=== PATIENT | female | born 1960 | race Caucasian/White ===

== ENCOUNTER 2016-09-16 14:39 | Emergency (ER) | payer MEDICAID ==
[2016-09-16 14:54] VITALS: BP 143/97
--- NOTE | 2016-09-16 15:34 | XRAY Preliminary Report ---
Exam: XR Knee 4 View RT IMPRESSION: Normal knee radiography. [facility] SITE ID: [id number]
--- NOTE | 2016-09-16 15:40 | XRAY Report ---
EXAM: RIGHT KNEE RADIOGRAPHY EXAM DATE: 09/16/2016 03:16 PM. CLINICAL HISTORY: Pain after twisting injury. COMPARISON: None. TECHNIQUE: 4 views. FINDINGS: Bones: Normal. No fractures or bone lesions. Joints: Normal. No effusion. No subluxations. Soft Tissues: Normal. No soft tissue swelling. IMPRESSION: Normal knee radiography. [facility] Referring Provider Line: [phone] SITE ID: [id number]
--- NOTE | 2016-09-16 17:33 | ED Physician Documentation ---
PD HPI LOWER EXT INJURY - Stated complaint Stated Complaint: R KNEE PX - Chief complaint Chief Complaint: Ext Problem - History obtained from History obtained from: Patient - History of Present Illness PD HPI LOW EXT INJURY LOCATION: Right, Knee Type of injury: Twist Where injury occurred: Home Timing - onset: How many weeks ago (1) Timing - details: Gradual onset Contributing factors: Other (Medial anterior knee pain with clicking behind the patella, remote history of arthroscopy there.) Review of Systems Constitutional: denies: Fever, Chills : reports: Reviewed and negative Skin: reports: Reviewed and negative Musculoskeletal: reports: Reviewed and negative PD PAST MEDICAL HISTORY - Past Medical History Cardiovascular: None Respiratory: COPD, Emphysema Neuro: Peripheral neuropathy Endocrine/Autoimmune: None Psych: None Musculoskeletal: Osteoarthritis - Past Surgical History General: Cholecystectomy, Appendectomy Ortho: Arthroscopic surgery /HEAD SAMPLER: Dilation and currettage, Hysterectomy HEENT: Tonsil/Adenoidectomy - Present Medications Home Medications: Ambulatory Orders Medication Instructions Recorded Confirmed Albuterol 1 neb NEB Q4HR PRN 08/02/15 09/16/16 Albuterol Sulfate [Ventolin Hfa] 2 puffs IH Q4HR 08/02/15 09/16/16 Amitriptyline [Elavil] 25 mg PO DAILY 08/02/15 09/16/16 Fluticasone Propionate [Flovent 1 puffs IH BID 08/02/15 09/16/16 Diskus] Loratadine 10 mg PO DAILY 08/02/15 09/16/16 Montelukast [Singulair] 10 mg PO DAILY 08/02/15 09/16/16 Naproxen [Naprosyn] 250 mg PO DAILY 08/02/15 09/16/16 Nitroglycerin [Nitrostat] 0.3 mg SL DAILY PRN 08/02/15 09/16/16 Salmeterol Xinafoate [Serevent 1 puffs IH BID 08/02/15 09/16/16 Diskus] Tiotropium [place] [Spiriva] 1 puffs IH DAILY 08/02/15 09/16/16 Cyclobenzaprine [Flexeril] 10 mg PO TID PRN #20 tablet 09/16/16 Ibuprofen [Motrin] 800 mg PO Q8H PRN #30 tablet 09/16/16 - Allergies Allergies/Adverse Reactions: Allergies Allergy/AdvReac Type Severity Reaction Status Date / Time morphine Allergy Nausea Verified 09/16/16 14:54 - Social History Does the pt smoke?: Yes Does the pt drink ETOH?: No Does the pt have substance abuse?: No - Immunizations Immunizations are current?: Yes PD ED PE NORMAL - Vitals Vital signs reviewed: Yes - General General: Alert and oriented X 3, No acute distress - Extremities Extremities: Other (Right knee is without effusion, no warmth. No bony tenderness but she has a lot of pain with flexion and grind testing, ligamentous testing is intact.) - Neuro Neuro: Alert and oriented X 3, Normal speech - Psych Psych: Normal mood, Normal affect Results - Vitals Vitals: Vital Signs - 24 hr 09/16/16 14:51 Temperature 36.6 C Heart Rate 94 Respiratory 15 Rate Blood Pressure 143/97 H O2 Saturation 96 Oxygen O2 Source Room air - Rads (name of study) R knee 4v Radiology: EMP read contemporaneously (normal) Departure - Departure Disposition: 01 Home, Self Care Clinical Impression: Knee pain, right Qualifiers: Chronicity: acute Qualified Code(s): M25.561 - Pain in right knee Condition: Good Record reviewed to determine appropriate education?: Yes Instructions: Knee Pain Prescriptions: Cyclobenzaprine [Flexeril] 10 mg PO TID PRN #20 tablet PRN Reason: Pain Ibuprofen [Motrin] 800 mg PO Q8H PRN #30 tablet PRN Reason: PAIN &/OR FEVER Comments: Follow-up with your primary care physician to discuss orthopedic referral. Return if worse. Your blood pressure was elevated today on check into the emergency department. This does not mean that you have hypertension, it is a common phenomenon to come to the emergency department and have elevated blood pressure. I recommend that she see her primary care physician within the week to have it rechecked when you are feeling better.
== END 2016-09-16 17:49 | disposition home or self-care (01) ==
LOC: ED 14:39
DX: M25.561 Pain in right knee (principal); G62.9 Polyneuropathy, unspecified; R03.0 Elevated blood-pressure reading, without diagnosis of hypertension
CPT/HCPCS: 99283

== ENCOUNTER 2017-02-18 15:08 | Outpatient (CLI) | payer MEDICAID ==
--- NOTE | 2017-02-20 11:43 | DEXA Report ---
DEXA SCAN: 02/18/2017 CLINICAL INDICATION: Osteoporosis. TECHNIQUE: Dual energy x-ray absorptiometry (DXA) was performed on a [employer] system. Regions measured are the AP spine, femoral neck, and, if needed, forearm. COMPARISON: None. In accordance with the International Society for Clinical Densitometry (ISCD) guidelines, data from previous exams may be reanalyzed using current recommendations and techniques. This is done to allow a more accurate basis for comparison with the current study. FINDINGS: The data for the lumbar spine is as follows: REGION BMD (g/cm/cm) T-SCORE Z-SCORE L1 0.903 -1.9 -1.3 L2 0.895 -2.5 -1.9 L3 0.912 -2.4 -1.8 L4 0.899 -2.5 -1.9 TOTAL 0.902 -2.3 -1.7 NOTE: All evaluable vertebrae are used for classification. The data for the hip is as follows: REGION BMD (g/cm/cm) T-SCORE Z-SCORE Neck 0.866 -1.2 -0.3 TOTAL 0.854 -1.2 -0.7 NOTE: The femoral neck or total proximal femur, whichever is lowest, is used for classification. IMPRESSION: THE WHO CLASSIFICATION BASED ON THE INTERNATIONAL REFERENCE STANDARD IS OSTEOPENIA. THE FRACTURE RISK IS INCREASED. RECOMMENDATION: Patients with diagnosis of osteoporosis or osteopenia should have regular bone mineral density assessment. For those eligible for Medicare, routine testing is allowed once every 2 years. Testing frequency can be increased for patients who have rapidly progressing disease or for those who are receiving medical therapy to restore bone mass. COMMENT: World Health Organization (WHO) definitions for osteoporosis and osteopenia: NORMAL BMD: T-score at 1.0 or higher, fracture risk is low. OSTEOPENIA BMD: T-score between 1.0 and -2.5, fracture risk is increased. OSTEOPOROSIS BMD: T-score at 2.5 or lower, fracture risk high. National Osteoporosis Foundation recommends: 1. Obtain adequate dietary calcium (at least 1200 mg per day) and vitamin D (400 -800 international units per day). 2. Participate, as appropriate, in regular weightbearing and muscle- strengthening exercise. 3. Avoid tobacco use and reduce alcohol and caffeine intake. 4. For more detailed information see the website at www.NOF.org. RA/ TD: 02/19/2017 10:36 MTDSada
== END 2017-02-18 15:09 | disposition home or self-care (01) ==
LOC: DI 15:08
PROVIDERS: ATTEND Family Medicine
DX: M81.0 Age-related osteoporosis without current pathological fracture (principal)
CPT/HCPCS: 77080

== ENCOUNTER 2017-02-18 15:10 | Outpatient (CLI) | payer MEDICAID ==
--- NOTE | 2017-02-19 14:17 | Mammography Report ---
REVISED: THIS REPORT WAS ORIGINALLY SIGNED ON 02/19/2017 @ 1525. THE EXAM DATE WAS CORRECTED ON 02/21/17. EXAM: DIGITAL SCREENING MAMMOGRAM: 02/18/2017 CLINICAL INDICATION: A 57-year-old with family history of breast cancer, for screening. COMPARISON: 07/2015, 03/2011, 08/2009. TECHNIQUE: Routine CC and MLO projections were obtained of the breasts. FINDINGS: The breasts demonstrate fatty replacement bilaterally. Intramammary lymph nodes are stable. No suspicious masses, clustered microcalcifications, or regions of architectural distortion are identified. IMPRESSION: BENIGN FINDINGS. RECOMMENDATIONS: Routine annual screening unless otherwise clinically indicated. BIRADS CATEGORY 2-BENIGN FINDINGS. STANDARD QUALIFYING STATEMENTS: 1. This examination was reviewed with the aid of Computer-Aided Detection (CAD). 2. A negative or benign imaging report should not delay biopsy if clinically suspicious findings are present. Consider surgical consultation if warranted. More than 5% of cancers are not identified by imaging. 3. Dense breasts may obscure an underlying neoplasm. MD MIKHAIL Alfonso/JARED TD: 02/19/2017 14:16 MTDD
== END 2017-02-18 15:11 | disposition home or self-care (01) ==
LOC: DI 15:10
PROVIDERS: ATTEND Family Medicine
DX: Z12.31 Encounter for screening mammogram for malignant neoplasm of breast (principal); Z80.3 Family history of malignant neoplasm of breast
CPT/HCPCS: 77067

== ENCOUNTER 2017-08-18 07:10 | Outpatient (CLI) | payer MEDICAID ==
--- NOTE | 2017-08-18 15:48 | CT Report ---
Procedure Date: 08/18/2017 Accession Number: [id number] / [id number] Procedure: CT - Chest W/O CPT Code: FULL RESULT: EXAM: CT CHEST EXAM DATE: 08/18/2017 07:30 AM. CLINICAL HISTORY: COPD, smoking, pulm nodule, shortness of breath. COMPARISONS: Chest CT 10/02/2013. TECHNIQUE: Routine helical CT imaging was performed through the chest. IV contrast: None. Reconstructions: Coronal and sagittal. In accordance with CT protocol optimization, one or more of the following dose reduction techniques were utilized for this exam: automated exposure control, adjustment of mA and/or KV based on patient size, or use of iterative reconstructive technique. FINDINGS: Lungs/Pleura: Stable triangular juxta-fissural right middle lobe nodule 4 x 6 mm (35/4). Focal subcentimeter juxta-fissural thickening right mid lung (30) also stable given technical differences. A stable 3 mm posterior right lower lobe nodule (28) and medial right lower lobe pleural-based thickening 5 x 8 mm (26). No new nodule or airspace opacity. Moderate centrilobular emphysema with upper lobe predominance. Mild right middle lobe and lingular scarring. No central endobronchial lesion. No pneumothorax or pleural effusion. Mediastinum: No mediastinal or hilar adenopathy by size criteria. Normal heart size. Normal caliber thoracic aorta. Bones: Mild dextroscoliosis. No fracture or aggressive bone destructive process. Visualized Abdomen: Unremarkable. IMPRESSION: 1. Stable small juxta-fissural and peripheral right lung nodules, benign given interval 3.5 + year stability. No new nodule or pathologic adenopathy. 2. Emphysema. [facility]
== END 2017-08-18 07:11 | disposition home or self-care (01) ==
LOC: DI 07:10
PROVIDERS: ATTEND Internal Medicine Critical Care Medicine
DX: R91.8 Other nonspecific abnormal finding of lung field (principal); J43.9 Emphysema, unspecified
CPT/HCPCS: 71250

== ENCOUNTER 2017-08-20 09:06 | Outpatient (CLI) | payer MEDICAID ==
[2017-08-20 09:44] LABS: ALBUMIN 3.8 g/dL (3.2-5.5); ALBUMIN/GLOBULIN RATIO 1.1 (1.0-2.2); ALKALINE PHOSPHATASE 116 IU/L (42-121); ALT ALANINE AMINOTRANSFERASE 21 IU/L (10-60); AST ASPARTATE AMINOTRANSFERASE 22 IU/L (10-42); BILIRUBIN,TOTAL 0.3 mg/dL (0.2-1.0); BUN - BLOOD UREA NITROGEN 8 mg/dL (6-20); CALCIUM 9.1 mg/dL (8.5-10.3); CARBON DIOXIDE - CO2 24 mmol/L (21-32); CHLORIDE 104 mmol/L (101-111); CHOL/HDL RATIO 5.7 (<4.4); CHOLESTEROL 218 mg/dL; CREATININE 0.8 mg/dL (0.4-1.0); GFR - MDRD 74 (>89); GLUCOSE 103 mg/dL (70-100); HDL CHOLESTEROL 38 mg/dL; LDL CHOLESTEROL,CALCULATED 136 mg/dL; LDL/HDL RATIO 3.6 (<4.4); SODIUM 138 mmol/L (135-145); TOTAL PROTEIN 7.4 g/dL (6.7-8.2); VLDL CHOLESTEROL 44 mg/dL
== END 2017-08-20 09:07 | disposition home or self-care (01) ==
LOC: LAB 09:06
PROVIDERS: ATTEND Family Medicine
DX: M81.0 Age-related osteoporosis without current pathological fracture (principal); E78.5 Hyperlipidemia, unspecified; F41.1 Generalized anxiety disorder
CPT/HCPCS: 80053; 80061; 82306; 83721; 84443

== ENCOUNTER 2017-09-02 10:48 | Outpatient (CLI) | payer MEDICAID | END 2017-09-02 10:49 | disposition home or self-care (01) | LOC: SC 10:48 | PROVIDERS: ATTEND Internal Medicine Pulmonary Disease | DX: G47.30 Sleep apnea, unspecified (principal); R09.02 Hypoxemia; R06.83 Snoring | CPT/HCPCS: 99203; 99212 ==

== ENCOUNTER 2017-09-23 20:12 | Outpatient (CLI) | payer MEDICAID | END 2017-09-23 20:13 | disposition home or self-care (01) | LOC: SC 20:12 | PROVIDERS: ATTEND Internal Medicine Pulmonary Disease | DX: G47.61 Periodic limb movement disorder (principal) | CPT/HCPCS: 95810 ==

== ENCOUNTER 2017-10-15 11:15 | Outpatient (CLI) | payer MEDICAID | END 2017-10-15 11:16 | disposition home or self-care (01) | LOC: SC 11:15 | PROVIDERS: ATTEND Nurse Practitioner Family | DX: R06.83 Snoring (principal); G47.61 Periodic limb movement disorder | CPT/HCPCS: 99212; 99213 ==

== ENCOUNTER 2017-10-16 14:59 | Outpatient (CLI) | payer MEDICAID | END 2017-10-16 15:00 | disposition home or self-care (01) | LOC: RT 14:59 | PROVIDERS: ATTEND Internal Medicine Cardiovascular Disease | DX: R07.9 Chest pain, unspecified (principal) | CPT/HCPCS: 93005 ==

== ENCOUNTER 2017-10-17 07:57 | Day surgery (SDC) | payer MEDICAID ==
--- NOTE | 2017-10-17 10:11 | XRAY Report ---
Procedure Date: 10/17/2017 Accession Number: [id number] / [id number] Procedure: XR - Chest for Line Placement CPT Code: FULL RESULT: EXAM: CHEST RADIOGRAPHY EXAM DATE: 10/17/2017 09:18 AM. CLINICAL HISTORY: PICC line placement per WATER/WASTEWATER PROJECT MANAGER. COMPARISON: None. TECHNIQUE: 1 view. FINDINGS: Lungs/Pleura: No focal opacities evident. No pleural effusion. No pneumothorax. Mediastinum: Within exam limitations, the cardiomediastinal contour is normal. Other: Right PICC terminating at the superior cavoatrial junction. IMPRESSION: Appropriately placed right PICC. [facility]
== END 2017-10-17 07:58 | disposition home or self-care (01) ==
LOC: SDS 07:57
PROVIDERS: ATTEND Nurse Anesthetist, Certified Registered
PROC: 02HV33Z Insertion of Infusion Device into Superior Vena Cava, Percutaneous Approach (ICD-10-PCS; principal; 2017-10-17 08:30)
DX: D75.1 Secondary polycythemia (principal)
CPT/HCPCS: 36569; C1751; 71045

== ENCOUNTER 2017-10-18 12:46 | Outpatient (CLI) | payer MEDICAID | END 2017-10-18 12:47 | disposition home or self-care (01) | LOC: DI 12:46 | PROVIDERS: ATTEND Internal Medicine Cardiovascular Disease | DX: R07.9 Chest pain, unspecified (principal); R06.02 Shortness of breath | CPT/HCPCS: 93306 ==

== ENCOUNTER 2017-10-31 18:21 | Emergency (ER) | payer MEDICAID ==
[2017-10-31 18:29] VITALS: BP 122/86
--- NOTE | 2017-10-31 18:49 | ED Physician Documentation ---
PD HPI SKIN - Stated complaint Stated Complaint: PICC LINE DRESSING COMING OFF - Chief complaint Chief Complaint: Ext Problem - History obtained from History obtained from: Patient - History of Present Illness Timing - onset: Today Timing - details: Gradual onset (her PICC line dressing was coming loose and she tried to get it to stay back on, but not successful. Here for dressing change. 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: Dilation and currettage, Hysterectomy HEENT: Tonsil/Adenoidectomy - Present Medications Home Medications: Ambulatory Orders Medication Instructions Recorded Confirmed Albuterol 1 neb NEB Q4HR PRN 08/02/15 10/01/17 Albuterol Sulfate [Ventolin Hfa] 2 puffs IH Q4HR 08/02/15 10/01/17 Amitriptyline [Elavil] 25 mg PO DAILY 08/02/15 10/01/17 Nitroglycerin [Nitrostat] 0.3 mg SL DAILY PRN 08/02/15 10/01/17 Ibuprofen [Motrin] 800 mg PO Q8H PRN #30 tablet 09/16/16 10/01/17 Fluticasone/Vilanterol [Breo 1 puffs INH DAILY 01/29/17 10/01/17 Ellipta 100-25 Mcg INH] - Allergies Allergies/Adverse Reactions: Allergies Allergy/AdvReac Type Severity Reaction Status Date / Time morphine Allergy Nausea Verified 09/16/16 14:54 sumatriptan [From Imitrex] AdvReac Nausea Verified 10/31/17 18:29 - Social History Does the pt smoke?: Yes Does the pt drink ETOH?: No Does the pt have substance abuse?: No - Immunizations Immunizations are current?: Yes PD ED PE NORMAL - Vitals Vital signs reviewed: Yes - General General: Alert and oriented X 3, No acute distress, Well developed/nourished - Derm Derm: Normal color, Warm and dry - Extremities Extremities: Other (right upper arm with PICC line. No signs of infection. The tegaderm covering is loose and not covering well. ) - Neuro Neuro: No motor deficit, No sensory deficit Results - Vitals Vitals: Oxygen O2 Source Room air PD MEDICAL DECISION MAKING - ED course Complexity details: considered differential (PICC line appears good without infection. Really here for dressing change. ), d/w patient - Sepsis Event Vital Signs: Oxygen O2 Source Room air Departure - Departure Disposition: Home, Self Care Clinical Impression: Status post PICC central line placement, Dressing change or removal, nonsurgical wound Condition: Stable Record reviewed to determine appropriate education?: Yes Comments: Continue usual care and treatments. Follow-up Friday as planned. Discharge Date/Time: 10/31/17 19:29
== END 2017-10-31 19:29 | disposition home or self-care (01) ==
LOC: ED 18:21
DX: Z48.00 Encounter for change or removal of nonsurgical wound dressing (principal); Z95.9 Presence of cardiac and vascular implant and graft, unspecified
CPT/HCPCS: 99281; 99283

== ENCOUNTER 2017-12-03 09:04 | Outpatient (CLI) | payer MEDICAID ==
--- NOTE | 2017-12-03 12:44 | CARDIAC PROCEDURE NOTE ---
DATE OF SERVICE: 12/03/2017 Physician: Awilda Price MD INDICATIONS 1. Chest tightness. 2. Shortness of breath. After signing informed consent, the patient underwent a treadmill stress test with Echo imaging at rest and with stress. Resting EKG: Normal sinus rhythm, right axis deviation, right bundle branch block with early R/S transition. Resting heart rate 93, peak heart rate 146 (90% predicted maximum heart rate for age). Resting blood pressure 128/64, peak blood pressure 180/60. The patient exercised for 7 minutes and 55 seconds on a modified Abdiel protocol. Patient achieved a peak heart rate of 146 (90% PMHR), and 4.6 METS. The patient had moderate to severe shortness of breath, no chest tightness. The patient brought her own inhaler and used this in recovery. Oxygen saturation at peak was 93% on room air. EKG at peak: No new ST or T-wave changes. IMPRESSION 1. Poor exercise tolerance. 2. No ischemic EKG changes at an adequate level of stress. 3. Nuclear images reported separately. cc: Katerina Das MD TD: 12/03/2017 12:16 MTDD
== END 2017-12-03 09:05 | disposition home or self-care (01) ==
LOC: DI 09:04
PROVIDERS: ATTEND Internal Medicine Cardiovascular Disease
DX: R07.89 Other chest pain (principal)
CPT/HCPCS: 93351

== ENCOUNTER 2017-12-31 14:42 | Day surgery (SDC) | payer MEDICAID ==
[2017-12-31 15:53] VITALS: BP 130/83
== END 2017-12-31 14:43 | disposition home or self-care (01) ==
LOC: SDS 14:42
PROVIDERS: ATTEND Nurse Anesthetist, Certified Registered
PROC: 02HV33Z Insertion of Infusion Device into Superior Vena Cava, Percutaneous Approach (ICD-10-PCS; principal; 2017-12-31 15:15)
DX: Z45.2 Encounter for adjustment and management of vascular access device (principal)
CPT/HCPCS: 36569; C1751

== ENCOUNTER 2018-01-12 08:22 | Inpatient (IN) | payer MEDICAID ==
[2018-01-12] MEDS ORDERED: IPRATROPIUM/ALBUTEROL 3 ML NEB INH STA (08:35)
[2018-01-12] MEDS ORDERED: DEXAMETHASONE 10 MG/ML VIAL PO STA (08:35)
--- NOTE | 2018-01-12 08:35 | ED Physician Documentation ---
History of Present Illness - Stated complaint Stated Complaint: DIFF BREATHING - Additonal information Additional information: hx from pt 3 days of fever cough soa wheeze mylagia too no travel daughter sick she has COPD been using her nebs q3 has home O2 usualy just at night - now all the time no steroids no leg swelling being worked up for suspected cancer Review of Systems Constitutional: reports: Fever, Myalgias Respiratory: reports: Dyspnea, Cough, Wheezing GI: denies: Vomiting, Diarrhea Neurologic: reports: Generalized weakness Endocrine: denies: Easy bruising / bleeding Immunocompromised: denies: Immunocompromised PD PAST MEDICAL HISTORY - Past Medical History Cardiovascular: None Respiratory: COPD, Emphysema Endocrine/Autoimmune: None Psych: None Musculoskeletal: Osteoarthritis - Past Surgical History General: Cholecystectomy, Appendectomy Ortho: Arthroscopic surgery /DIETITIAN THERAPEUTIC: Dilation and currettage, Hysterectomy HEENT: Tonsil/Adenoidectomy - Present Medications Home Medications: Ambulatory Orders Medication Instructions Recorded Confirmed Albuterol 1 neb NEB Q4HR PRN 08/02/15 11/26/17 Albuterol Sulfate [Ventolin Hfa] 2 puffs IH Q4HR 08/02/15 11/26/17 Amitriptyline [Elavil] 25 mg PO DAILY 08/02/15 11/26/17 Nitroglycerin [Nitrostat] 0.3 mg SL DAILY PRN 08/02/15 11/26/17 Ibuprofen [Motrin] 800 mg PO Q8H PRN #30 tablet 09/16/16 11/26/17 Fluticasone/Vilanterol [Breo 1 puffs INH DAILY 01/29/17 11/26/17 Ellipta 100-25 Mcg INH] - Allergies Allergies/Adverse Reactions: Allergies Allergy/AdvReac Type Severity Reaction Status Date / Time morphine Allergy Nausea Verified 09/16/16 14:54 sumatriptan [From Imitrex] AdvReac Nausea Verified 10/31/17 18:29 - Social History Does the pt smoke?: Yes Smoking Status: Current every day smoker Does the pt drink ETOH?: No Does the pt have substance abuse?: No - Immunizations Immunizations are current?: Yes PD ED PE NORMAL - Vitals Vital signs reviewed: Yes (hypoxic low 90s) - Neck Neck: Supple, no meningeal sign - Cardiac Cardiac: RRR - Respiratory Respiratory: Other (tight dec some wheezing ronchi yash labored incessant cough) - Abdomen Abdomen: Soft, Non tender - Derm Derm: Normal color - Extremities Extremities: No edema, No calf tenderness / cord - Psych Psych: Normal mood Results - Vitals Vitals: Vital Signs - 24 hr 01/12/18 01/12/18 01/12/18 08:30 08:55 11:03 Temperature 36.2 C L Heart Rate 119 H 99 100 Respiratory 12 18 18 Rate Blood Pressure 153/112 H O2 Saturation 93 01/12/18 12:13 Temperature 37.0 C Heart Rate 100 Respiratory 24 Rate Blood Pressure 106/62 O2 Saturation 99 Oxygen O2 Source Nasal cannula Oxygen Flow Rate 3 - Labs Labs: Laboratory Tests 01/12/18 01/12/18 01/12/18 08:35 13:30 13:30 WBC 9.1 RBC 4.13 L Hgb 12.8 Hct 37.8 MCV 91.6 MCH 31.0 MCHC 33.8 RDW 13.6 Plt Count 225 MPV 8.8 Neut # (Auto) 8.3 H Lymph # (Auto) 0.6 L Grimes # (Auto) 0.2 Eos # (Auto) 0.0 Baso # (Auto) 0.0 Absolute Nucleated RBC 0.00 Nucleated RBC % 0.0 Sodium 137 Potassium 3.7 Chloride 103 Carbon Dioxide 24 Anion Gap 10.0 BUN 8 Creatinine 0.8 Estimated GFR (MDRD) 74 L Glucose 146 H Calcium 8.9 Troponin I Influenza A (Rapid) Negative Influenza B (Rapid) Negative 01/12/18 13:30 WBC RBC Hgb Hct MCV MCH MCHC RDW Plt Count MPV Neut # (Auto) Lymph # (Auto) Grimes # (Auto) Eos # (Auto) Baso # (Auto) Absolute Nucleated RBC Nucleated RBC % Sodium Potassium Chloride Carbon Dioxide Anion Gap BUN Creatinine Estimated GFR (MDRD) Glucose Calcium Troponin I < 0.04 Influenza A (Rapid) Influenza B (Rapid) - Rads (name of study) CXR Radiology: See rad report (no acute) CTPA Radiology: See rad report (no PE, emphysema, no opacities, unchanged nodules and modes) PD MEDICAL DECISION MAKING - ED course ED course: neg flu no pna txed with steroids and nebs after decadron tessalon fabiana DM and duoneb pt still labored tight and wheezy also R side pain with cough lido patch relieved pain improved air movement with more nebs but desat to 80 with minimal exertion will needed admit will add CTPA given tachy profound hypoxia possible CA and smoker added on labs too for admit paged hospitalist at 1250 spoke to hospitalist at 1320 Departure - Departure Disposition: 66 [facility] DC/Xfer Clinical Impression: Hypoxia Condition: Good
[2018-01-12] MEDS ORDERED: BENZONATATE 100 MG CAPSULE PO STA (08:54)
[2018-01-12] MEDS ORDERED: guaiFENesin/DEXTROMETHORPHAN 10 ML UDC PO STA (08:54)
--- NOTE | 2018-01-12 09:12 | XRAY Report ---
Reason: soa Procedure Date: 01/12/2018 Accession Number: [id number] / [id number] Procedure: XR - Chest 2 View X-Ray CPT Code: 60410 FULL RESULT: EXAM: CHEST RADIOGRAPHY EXAM DATE: 01/12/2018 08:52 AM. CLINICAL HISTORY: Short of breath, intermittent fever COMPARISON: 12/29/2017 TECHNIQUE: 2 views. FINDINGS: Lungs/Pleura: No focal opacities evident. No pleural effusion. No pneumothorax. Normal volumes. Mediastinum: Heart and mediastinal contours are unremarkable. Other: No acute findings compared with prior. IMPRESSION: Clear lungs. No acute findings.. [facility]
[2018-01-12] MEDS ORDERED: LIDOCAINE PATCH 5% TOP STA (10:17)
[2018-01-12] MEDS ORDERED: ALBUTEROL NEB 2.5 MG/3 ML INH STA (10:17)
[2018-01-12] MEDS ORDERED: SODIUM CHLORIDE 0.9% 1,000 ML IV ONE (12:54)
[2018-01-12] MEDS ORDERED: IOPAMIDOL-300 100 ML VIAL ONE (13:03)
[2018-01-12 13:39] LABS: BASOPHILS % (AUTO) 0.3 %; HGB - HEMOGLOBIN 12.8 g/dL (12.0-16.0); LYMPHOCYTES # (AUTO) 0.6 10^3/uL (1.5-3.5); LYMPHOCYTES % (AUTO) 6.2 %; MEAN CORPUSCULAR HGB CONC 33.8 g/dL (32.0-36.0); MEAN CORPUSCULAR VOLUME 91.6 fL (81.0-99.0); MEAN PLATELET VOLUME 8.8 fL (7.9-10.8); MONOCYTES # (AUTO) 0.2 10^3/uL (0.0-1.0); MONOCYTES % (AUTO) 1.8 %; NEUTROPHILS # (AUTO) 8.3 10^3/uL (1.5-6.6); NEUTROPHILS % (AUTO) 91.7 %; PLT - PLATELET COUNT 225 10^3/uL (130-450); RED BLOOD COUNT 4.13 10^6/uL (4.20-5.40); RED CELL DISTRIBUTION WIDTH 13.6 % (12.0-15.0); WHITE BLOOD COUNT 9.1 x10^3/uL (4.8-10.8)
[2018-01-12 13:49] LABS: CALCIUM 8.9 mg/dL (8.5-10.3); CREATININE 0.8 mg/dL (0.4-1.0)
[2018-01-12] MEDS ORDERED: SODIUM CHLORIDE FLUSH 0.9% 10 ML SYRINGE IVP PRN (14:39)
--- NOTE | 2018-01-12 14:40 | HISTORY & PHYSICAL EXAMINATION ---
Chief Complaint - Chief Complaint Chief Complaint: profound SOB, inability to ambulate History of Present Illness - Admitted From Admitted From:: ED - History Obtained From Records Reviewed: yes History obtained from: chart review, patient Exam Limitations: none, anxiety - History of Present Illness HPI Comment/Other: Pat Yuen is an old appearing 57-year old female with a past medical history of polycythemia, tobacco dependence, oxygen dependence, osteoarthritis, angina, hypertension, hyperlipidemia, CAD, pulmonary nodules, recent weight loss, and vitamin D deficiency. She came to the ED today after a 3 day history of headache, fever, chills, productive cough, profound weakness, inability to ambulate, increased home oxygen needs, and ongoing shortness of breath. She states that her daughter, Ya was ill, and believes she had the flu. She states that she started to become ill on Friday (3 days ago) with sneezing, runny nose and general fatigue, and on Friday (2 days ago) she became much worse with similar symptoms, except now had coughing that was productive with white/yellow sputum. She states that she coughed so hard that she would wet her pants and/or vomit from gagging. She is dependent on oxygen that she normally wears at night, but she was wearing it continuously and turned it from her usual 2L up to 3L per nasal cannula. She also admits to round the clock albuterol use via nebulizer and "puffer". She states that the reason she came in today was her inability to ambulate more than a few steps. Once in the ED labs were unremarkable and her chest x-ray was clear. She complained of right chest burning pain with inspiration and was tacycardic, so a chest CT was done which showed stable unchanged pulmonary nodules and negative for a PE. On exam, she denied mid-sternal chest pain, radiating pain, dizziness, diaphoresis, rashes, or hemoptysis. She will be admitted to inpatient for treatment of her COPD with IV steroids, IV antibiotics, and respiratory care. History - Past Medical History Cardiovascular: reports: Hypertension, High cholesterol, Coronary artery disease, Angina, Murmur Respiratory: reports: COPD, Emphysema, Pneumonia, Shortness of breath Neuro: reports: Headaches Endocrine/Autoimmune: reports: None GI: reports: GERD, Colon polyps DIGITAL PHOTOGRAPHIC PRINTER: reports: None : reports: Incontinence, Nocturia, Frequency HEENT: reports: Chronic sinusitis Psych: reports: Depression, Anxiety Musculoskeletal: reports: Osteoarthritis, Osteopenia Derm: reports: None MRSA Hx?: No - Past Surgical History General: reports: Cholecystectomy, Appendectomy Ortho: reports: Arthroscopic surgery /DIGITAL PHOTOGRAPHIC PRINTER: reports: Dilation and currettage, Hysterectomy (cervix removal) Cardiovascular: reports: Cardiac catheterization HEENT: reports: Tonsil/Adenoidectomy - Family & Social History Family History: Mother: , Father: , CAD, Diabetes, Type 2, Brother: Family History Comment/Other: Father-heart disease, DM. Mother-thyroid disease, pulmonary fibrosis. Brother- in a car accident Living arrangement: At home Living Situation: With family Social History Notes: The patient has 8 children, and her youngest, Marisela lives with her and her 8 birds and 2 dogs. The patient is independent and can complete all of her ADLs, and wears oxygen at night. She states that she still drives. 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 She denies alcoholism or illicit drug use. She admits to current tobacco dependence of which she continues to smoke up to 1 PPD since age 17 years. She wishes to be a FULL code. - Substance History Use: Uses substance without health or social issues: Tobacco Use Issues: Anxiety Disorder Abuse: Recurrent use of substance despite neg consequences: NONE Dependence: Experiences withdrawal or developed tolerances: Tobacco Dependence Issues: Anxiety Disorder Tobacco Details: Cigarettes - POLST Patient has POLST: No POLST Status: Full Code Meds/Allgy - Home Medications Home Medications: Ambulatory Orders Medication Instructions Recorded Confirmed Albuterol 1 neb NEB Q4HR PRN 08/02/15 11/26/17 Albuterol Sulfate [Ventolin Hfa] 2 puffs IH Q4HR 08/02/15 11/26/17 Amitriptyline [Elavil] 25 mg PO DAILY 08/02/15 11/26/17 Nitroglycerin [Nitrostat] 0.3 mg SL DAILY PRN 08/02/15 11/26/17 Ibuprofen [Motrin] 800 mg PO Q8H PRN #30 tablet 09/16/16 11/26/17 Fluticasone/Vilanterol [Breo 1 puffs INH DAILY 01/29/17 11/26/17 Ellipta 100-25 Mcg INH] - Allergies Allergies/Adverse Reactions: Allergies Allergy/AdvReac Type Severity Reaction Status Date / Time morphine Allergy Nausea Verified 09/16/16 14:54 sumatriptan [From Imitrex] AdvReac Nausea Verified 10/31/17 18:29 Exam - Vital Signs Reviewed Vital Signs: Yes Vital Signs: Vital Signs x48h Temp Pulse Resp BP Pulse Ox 01/12/18 12:13 37.0 C 100 24 106/62 99 01/12/18 11:03 100 18 01/12/18 08:55 99 18 01/12/18 08:30 36.2 C L 119 H 12 153/112 H 93 - Physical Exam General Appearance: positive: Alert, Moderate distress, Anxious Eyes Bilateral: positive: PERRL, No lid inflammation ENT: positive: Pharyngeal erythema, Dry mucous membranes Neck: positive: No JVD, Lymphadenopathy (R), Lymphadenopathy (L) Respiratory: positive: Chest non-tender, Wheezes, Rhonchi Cardiovascular: positive: Regular rate & rhythm, No gallop, Tachycardia, Systolic murmur Peripheral Pulses: positive: 1+ Abdomen: positive: Non-tender, Nml bowel sounds Back: positive: Nml inspection Skin: positive: No rash, Warm, Dry, Cyanosis, Pallor Extremities: positive: Non-tender, Full ROM, Nml appearance, No pedal edema Neurologic/Psychiatric: positive: Oriented x3, CN's nml (2-12), Motor nml, Sensation nml, Weakness, Depressed mood/affect Reflexes: Bicep (R): 3+, Bicep (L): 3+ Sepsis Event Note (H) - Evaluation Current Stage of Sepsis: Ruled out Conclusion/Plan - Problem List (1) COPD exacerbation Conclusion/Plan: The patient states that she does not usual get admitted to the hospital, but has several ED visits for her COPD. She started to become ill on Friday (3 days ago) with sneezing, runny nose and general fatigue, and on Friday (2 days ago) she became much worse with similar symptoms, except now had coughing that was productive with white/yellow sputum. She states that she coughed so hard that she would wet her pants and/or vomit from gagging. She is dependent on oxygen that she normally wears at night, but she was wearing it continuously and turned it from her usual 2L up to 3L per nasal cannula. She also admits to round the clock albuterol use via nebulizer and "puffer". She states that the reason she came in today was her inability to ambulate more than a few steps. The patient is talkative, has a dramatic social life and has risk for polluting organisms in her home because she has at least 8 BIRDs and 2 dogs that live in the house. Plan: Continue to treat acute exacerbation using moderate dose IV steroids, nebs, IV zosyn, cough suppressants, and attempt to obtain a sputum sample. (2) Hypoxia Conclusion/Plan: The patient states that she did not check her oxygen at home, but had turned her oxygen up from her usual dose of 2L to 3L since Friday. Plan: Continue oxygen, respiratory care. Per chart review, she was 93% on room air. (3) Oxygen dependent Conclusion/Plan: The patient states that she has required oxygen for sleeping for several years, but has progressively used it more during the day. Plan: Continue to treat COPD exac. (4) Tobacco dependence Conclusion/Plan: The patient admits to life long tobacco dependence and states that she was able to quit for 7 years, but went back to it. She states that she smokes nearly 1 PPD, but usually would smoke 2-3 PPD. She is dependent on oxygen and has signs of tobacco abuse. She states she is not ready to quit. She was counseled about the #1 recommendation is to stop smoking. She refused a nicotine patch. Plan: Offer patch if needed. (5) Pulmonary nodule Conclusion/Plan: The patient had a chest CT in August that showed several pulmonary nodules and today on a chest CT that was obtained to rule out PE, these nodules are stable and unchanged. She denies hemopysis on exam. She states that she has not established an oncologist and is about to have a colonoscopy for her recent weight loss. Plan: Continue to treat COPD. - Lab Results Lab results reviewed: Yes Lius Bones: 01/12/18 13:30 01/12/18 13:30 - Diagnostic Imaging Results Diagnostic Imaging Results: positive: Prelim report reviewed Diagnostic Imaging Results Comments: Chest x-ray shows no infiltrates. Chest CT, pulmonary nodules that are unchanged, and negative for PE. Core Measures - Anticipated LOS I expect patient to be DC'd or transferred within 96 hours.: Yes - DVT/VTE - Prophylaxis VTE/DVT Device ordered at admit?: Yes VTE/DVT Prophylaxis med ordered at admit?: Yes - Stroke - Rehab Assessment Rehab services assessment to be ordered?: No Not Ordered - Medical Reason: Contraindicated - AMI - Statin at Admit Aspirin Prescribed on Admit: Yes
[2018-01-12] MEDS: IOPAMIDOL-300 100 ML VIAL IVP ONE (14:42)
--- NOTE | 2018-01-12 15:06 | CT Report ---
Reason: soa tachy hypoxic smoker possible cancer Procedure Date: 01/12/2018 Accession Number: [id number] / [id number] Procedure: CT - Chest Angio (PE) CPT Code: FULL RESULT: EXAM: CT ANGIOGRAM CHEST EXAM DATE: 01/12/2018 02:00 PM. CLINICAL HISTORY: Shortness of breath, tachycardia, hypoxic, smoker, possible cancer. COMPARISON: CHEST W/O 08/18/2017 7:26 AM CHEST 2 VIEW 01/12/2018 8:40 AM CHEST W/O 10/02/2013 9:40 AM. TECHNIQUE: Routine helical imaging was performed through the chest in the pulmonary arterial phase. IV Contrast: 50 cc Isovue-300. Reconstructions: Coronal 3-D MIP reconstructions.Sagittal and coronal. In accordance with CT protocol optimization, one or more of the following dose reduction techniques were utilized for this exam: automated exposure control, adjustment of mA and/or KV based on patient size, or use of iterative reconstructive technique. FINDINGS: Pulmonary Arteries: Diagnostic quality: Adequate through the segmental arteries. No evidence for acute or chronic pulmonary emboli. Heart: Normal size. RV/LV is within normal limits. There is no interventricular septal bowing. There is no reflux of contrast material in the IVC. Lungs/Pleura: Moderate centrilobular emphysema, as before. There are unchanged nodules: 9 x 4 mm subpleural nodule/lymph node medially in the superior segment right lower lobe (5/61). 3 mm peripheral nodule posteromedially in the superior segment right lower lobe present 5/67). 6 mm nodule/lymph node along the minor fissure (5/72). 7 x 4 mm peripheral anterior aspect of the right middle lobe (5/88). No new nodules. No confluent airspace consolidation. No generalized interstitial abnormality. Central airways normal. No pleural fluid or pneumothorax. Mediastinum: Mildly enlarged 12 mm short axis diameter aorticopulmonary window lymph node, unchanged. Upper normal sized 10 mm precarinal lymph node, unchanged. There are small bilateral hilar lymph nodes, unchanged. Thyroid gland and esophagus are unremarkable. Thoracic Aorta: Minimal scattered descending thoracic aortic calcification. No aneurysm or dissection. Upper Abdomen: Gallbladder surgically absent. Otherwise unremarkable. Other: Chest wall unremarkable. Bones unremarkable. IMPRESSION: 1. No pulmonary embolism. 2. Moderate centrilobular emphysema, as before. 3. No new airspace opacities. Scattered small right-sided peripheral nodules and subpleural lymph nodes, unchanged since 2014. 4. Mildly enlarged aorticopulmonary window and upper normal sized pre-carinal lymph nodes, unchanged. RADIA
[2018-01-12] MEDS ORDERED: IPRATROPIUM/ALBUTEROL 3 ML NEB INH SCH (16:41)
[2018-01-12] MEDS ORDERED: ACETAMINOPHEN 325 MG TABLET PO PRN (16:45)
[2018-01-12] MEDS: methylPREDNISolone SUCCINATE 40 MG/ML VIAL IVP SCH ×2 (18:22→21:56)
[2018-01-12] MEDS: SODIUM CHLORIDE FLUSH 0.9% 10 ML SYRINGE IVP SCH ×2 (18:22→23:57)
[2018-01-12] MEDS: D5.45NS W/20 MEQ KCL 1,000 ML IV SCH (18:22)
[2018-01-12] MEDS: PIPERACILLIN/TAZOBACTAM 4.5 GM in SODIUM CHLORIDE 0.9% MINIBAG 100 ML IV SCH (18:32)
[2018-01-12] MEDS: IPRATROPIUM/ALBUTEROL 3 ML NEB INH SCH (19:09)
[2018-01-12] MEDS: guaiFENesin/DEXTROMETHORPHAN 10 ML UDC PO PRN (20:14)
[2018-01-12] MEDS: BENZONATATE 100 MG CAPSULE PO PRN (20:14)
[2018-01-12] MEDS ORDERED: SODIUM CHLORIDE 0.65% NASAL SPRAY NAS PRN (23:41)
[2018-01-13] MEDS: ALBUTEROL NEB 2.5 MG/3 ML INH PRN (00:09)
[2018-01-13] MEDS: guaiFENesin/DEXTROMETHORPHAN 10 ML UDC PO PRN ×3 (02:02→16:59)
[2018-01-13] MEDS: PIPERACILLIN/TAZOBACTAM 4.5 GM in SODIUM CHLORIDE 0.9% MINIBAG 100 ML IV SCH ×3 (02:02→18:27)
[2018-01-13] MEDS: methylPREDNISolone SUCCINATE 40 MG/ML VIAL IVP SCH (05:21)
[2018-01-13] MEDS: SODIUM CHLORIDE FLUSH 0.9% 10 ML SYRINGE IVP PRN ×2 (05:21→05:22)
[2018-01-13] MEDS: BENZONATATE 100 MG CAPSULE PO PRN ×2 (05:21→14:17)
[2018-01-13 05:47] LABS: BASOPHILS % (AUTO) 0.1 %; LYMPHOCYTES # (AUTO) 1.2 10^3/uL (1.5-3.5); LYMPHOCYTES % (AUTO) 6.6 %; MEAN CORPUSCULAR HEMOGLOBIN 30.8 pg (27.0-31.0); MEAN CORPUSCULAR VOLUME 93.2 fL (81.0-99.0); MEAN PLATELET VOLUME 8.8 fL (7.9-10.8); MONOCYTES # (AUTO) 0.8 10^3/uL (0.0-1.0); MONOCYTES % (AUTO) 4.7 %; NEUTROPHILS # (AUTO) 15.5 10^3/uL (1.5-6.6); NEUTROPHILS % (AUTO) 88.6 %; PLT - PLATELET COUNT 235 10^3/uL (130-450); RED CELL DISTRIBUTION WIDTH 14.3 % (12.0-15.0); WHITE BLOOD COUNT 17.5 x10^3/uL (4.8-10.8)
[2018-01-13 05:56] LABS: ALBUMIN 3.1 g/dL (3.2-5.5); ALBUMIN/GLOBULIN RATIO 0.9 (1.0-2.2); BILIRUBIN,TOTAL 0.3 mg/dL (0.2-1.0); CALCIUM 8.6 mg/dL (8.5-10.3); CREATININE 0.8 mg/dL (0.4-1.0); MAGNESIUM 2.2 mg/dL (1.7-2.8); PHOSPHORUS 2.3 mg/dL (2.5-4.6); TOTAL PROTEIN 6.5 g/dL (6.7-8.2)
[2018-01-13] MEDS: IPRATROPIUM/ALBUTEROL 3 ML NEB INH SCH ×4 (07:20→19:00)
[2018-01-13] MEDS: D5.45NS W/20 MEQ KCL 1,000 ML IV SCH (09:44)
[2018-01-13] MEDS: FLUCONAZOLE 200 MG/100 ML 50 ML IV SCH (09:46)
[2018-01-13] MEDS: SACCHAROMYCES BOULARDII 250 MG CAPSULE PO SCH ×2 (09:49→18:26)
[2018-01-13] MEDS: ENOXAPARIN 40 MG/0.4 ML SYRINGE SUBQ SCH ×2 (09:49→09:52)
[2018-01-13] MEDS: guaiFENesin 600 MG TABLET PO SCH (09:50)
[2018-01-13] MEDS: POLYETHYLENE GLYCOL 3350 17 GM PACKET PO SCH (09:51)
[2018-01-13] MEDS: SODIUM CHLORIDE FLUSH 0.9% 10 ML SYRINGE IVP SCH ×2 (09:53→17:00)
[2018-01-13] MEDS ORDERED: IOPAMIDOL-300 100 ML VIAL ONE (10:43)
[2018-01-13] MEDS ORDERED: IOVERSOL 320 50 ML VIAL ONE (10:43)
[2018-01-13] MEDS: SODIUM CHLORIDE 0.9% 1,000 ML IV SCH (11:44)
[2018-01-13] MEDS ORDERED: methylPREDNISolone SUCCINATE 40 MG/ML VIAL IVP SCH (14:00)
[2018-01-13] MEDS ORDERED: IOVERSOL 320 50 ML VIAL PO ONE (14:29)
[2018-01-13] MEDS: IOPAMIDOL-300 100 ML VIAL IVP ONE (14:30)
--- NOTE | 2018-01-13 15:18 | PROVIDER PROGRESS NOTE ---
Subjective - Prog Note Date Prog Note Date: 01/13/18 - Subjective Pt reports feeling: Improved Subjective: pt report she had a out-pt schedule for CT of abdomen and pelvis on tomorrow for concern of her possible malignancy. Pt state since she is already inpt, request to have CT. She state she continue to use Cigarette but is willing to quit. She report she has some cough but better than yesterday, denies fever, chill, chest pain. Current Medications - Current Medications Current Medications: Active Medications Acetaminophen (Tylenol) 650 mg PO Q4HR PRN PRN Reason: Pain or Fever > 38C (100.4F) Albuterol () 2.5 mg INH RTQ4H PRN PRN Reason: Wheezing Last Admin: 01/13/18 00:09 Dose: 2.5 mg Albuterol/Ipratropium (Duoneb) 3 ml INH RTQID [facility] Last Admin: 01/13/18 14:00 Dose: 3 ml Benzonatate (Tessalon) 100 mg PO TID PRN PRN Reason: Cough Last Admin: 01/13/18 14:17 Dose: 100 mg Enoxaparin Sodium (Lovenox) 40 mg SUBQ DAILY [facility] Last Admin: 01/13/18 09:52 Dose: Not Given Guaifenesin (Mucinex) 600 mg PO DAILY [facility] Last Admin: 01/13/18 09:50 Dose: 600 mg Guaifenesin (Robitussin Dm) 10 ml PO Q6HR PRN PRN Reason: Cough Last Admin: 01/13/18 10:35 Dose: 10 ml Piperacillin Sod/Tazobactam (Sod 4.5 gm/ Sodium Chloride) 100 mls @ 25 mls/hr IV Q8H [facility] Last Infusion: 01/13/18 14:58 Dose: Infused Fluconazole (Diflucan 200 Mg/100 Ml) 50 mls @ 0 mls/hr IV DAILY [facility] Last Infusion: 01/13/18 10:30 Dose: Infused Sodium Chloride (Normal Saline 0.9%) 1,000 mls @ 100 mls/hr IV .Q10H [facility] Stop: 01/14/18 06:59 Last Admin: 01/13/18 11:44 Dose: 100 mls/hr Methylprednisolone (Solu-Medrol (40mg Vial)) 30 mg IVP TID [facility] Last Admin: 01/13/18 14:12 Dose: 30 mg Polyethylene Glycol (Miralax) 17 gm PO DAILY [facility] Last Admin: 01/13/18 09:51 Dose: Not Given Saccharomyces Boulardii (Florastor) 500 mg PO BIDWM [facility] Last Admin: 01/13/18 09:49 Dose: 500 mg Sodium Chloride (Normal Saline Flush 0.9%) 10 ml IVP PRN PRN PRN Reason: NEEDED PER PROVIDER ORDERS Last Admin: 01/13/18 05:21 Dose: 10 ml Sodium Chloride (Normal Saline Flush 0.9%) 10 ml IVP 0100,0900,1700 [facility] Last Admin: 01/13/18 09:53 Dose: Not Given Sodium Chloride (Normal Saline Flush 0.9%) 10 ml IVP PRN PRN PRN Reason: NEEDED PER PROVIDER ORDERS Sodium Chloride (Normal Saline Flush 0.9%) 20 ml IVP PRN PRN PRN Reason: After TPN or Blood Draw Last Admin: 01/13/18 05:22 Dose: 20 ml Sodium Chloride ([place]) 2 sprays LICHA Q4HR PRN PRN Reason: Nasal Congestion Albuterol 1 neb NEB Q4HR PRN 08/02/15 Albuterol Sulfate [Ventolin Hfa] 2 puffs IH Q4HR PRN 08/02/15 Amitriptyline [Elavil] 50 mg PO DAILY 08/02/15 Ascorbic Acid [Vitamin C] 500 mg PO DAILY 01/13/18 Cholecalciferol [Vitamin D3] 5,000 unit PO DAILY 01/13/18 Nitroglycerin 0.4 mg SL DAILY PRN 01/13/18 Tiotropium [place] [Spiriva] 2 inh INH DAILY 01/13/18 Objective - Vital Signs/Intake & Output Vital Signs: Vital Signs x48h Temp Pulse Pulse Resp BP Pulse Ox 01/13/18 14:00 86 20 01/13/18 12:05 36.7 C 80 22 104/69 97 01/13/18 11:40 36.6 C 75 16 95/65 97 01/13/18 07:57 36.4 C L 85 18 92/61 95 01/13/18 07:20 89 20 Intake & Output: Intake & Output 01/10/18 01/11/18 01/12/18 01/13/18 23:59 23:59 23:59 23:59 Intake Total 871.770 0695.283 Balance 624.109 4575.302 - Lab Results Fish Bones: 01/13/18 05:33 01/13/18 05:33 Other Labs: Lab Results x24hrs 01/13/18 01/13/18 01/13/18 Range/Units 05:33 05:33 05:33 WBC 17.5 H (4.8-10.8) x10^3/uL RBC 3.90 L (4.20-5.40) 10^6/uL Hgb 12.0 (12.0-16.0) g/dL Hct 36.3 L (37.0-47.0) % MCV 93.2 (81.0-99.0) fL MCH 30.8 (27.0-31.0) pg MCHC 33.0 (32.0-36.0) g/dL RDW 14.3 (12.0-15.0) % Plt Count 235 (130-450) 10^3/uL MPV 8.8 (7.9-10.8) fL Neut # (Auto) 15.5 H (1.5-6.6) 10^3/uL Lymph # (Auto) 1.2 L (1.5-3.5) 10^3/uL [place] # (Auto) 0.8 (0.0-1.0) 10^3/uL Eos # (Auto) 0.0 (0.0-0.7) 10^3/uL Baso # (Auto) 0.0 (0.0-0.1) 10^3/uL Absolute Nucleated RBC 0.00 x10^3/uL Nucleated RBC % 0.0 /100WBC Sodium 136 (135-145) mmol/L Potassium 4.0 (3.5-5.0) mmol/L Chloride 107 (101-111) mmol/L Carbon Dioxide 25 (21-32) mmol/L Anion Gap 4.0 L (6-13) BUN 9 (6-20) mg/dL Creatinine 0.8 (0.4-1.0) mg/dL Estimated GFR (MDRD) 74 L (>89) Glucose 148 H (70-100) mg/dL Lactic Acid 1.8 (0.5-2.2) mmol/L Calcium 8.6 (8.5-10.3) mg/dL Phosphorus 2.3 L (2.5-4.6) mg/dL Magnesium 2.2 (1.7-2.8) mg/dL Total Bilirubin 0.3 (0.2-1.0) mg/dL AST 22 (10-42) IU/L ALT 13 (10-60) IU/L Alkaline Phosphatase 101 (42-121) IU/L Total Protein 6.5 L (6.7-8.2) g/dL Albumin 3.1 L (3.2-5.5) g/dL Globulin 3.4 (2.1-4.2) g/dL Albumin/Globulin Ratio 0.9 L (1.0-2.2) Sepsis Event Note (H) - Evaluation Current Stage of Sepsis: Ruled out Assessment/Plan - Problem List (1) COPD exacerbation Impression: pt report she took 2 liter of O2 at night. pt feel breathing is better today. continue Duonet, solu-metrol, O2 supplement as needed (2) Hypoxia Conclusion/Plan: improved, pt state she feel her breath is better, 97% sats on 4 liter of O2 continue to treat COPD exacerbation, continue treat with antibiotics (3) Oxygen dependent Conclusion/Plan: pt is home O2 dependent special at night continue O2 supplement as needed (4) Tobacco dependence consult and encourage pt quit tobacco (5) Pulmonary nodule stable in the CTA of chest, order CT of abdomen and pelvis to check any other suspicious malignancy, will follow up and discuss with pt (6) cough with yellow sputum pt report cough with yellow sputum. pt has significant elevated WBC, it could be caused by steroid. continue Zosyn and follow up sputum culture
--- NOTE | 2018-01-13 16:20 | CT Report ---
Reason: abdominal discomfort, any neoplasma Procedure Date: 01/13/2018 Accession Number: [id number] / [id number] Procedure: CT - Abdomen/Pelvis W/ CPT Code: FULL RESULT: EXAM: CT ABDOMEN AND PELVIS EXAM DATE: 01/13/2018 12:28 PM. CLINICAL HISTORY: Abdominal discomfort, any neoplasm. COMPARISONS: None. TECHNIQUE: Routine helical CT imaging was performed through the abdomen and pelvis. IV contrast: Yes. Enteric contrast: No. Reconstructions: Coronal and sagittal. In accordance with CT protocol optimization, one or more of the following dose reduction techniques were utilized for this exam: automated exposure control, adjustment of mA and/or KV based on patient size, or use of iterative reconstructive technique. FINDINGS: Lung Bases: Unremarkable. Liver: Normal. No masses. Gallbladder/Bile Ducts: Gallbladder surgically absent. There is no biliary ductal dilatation. Spleen: Normal. Pancreas: Normal. Adrenal Glands: Normal. Kidneys: Normal. No masses or hydronephrosis. Peritoneal Cavity/Bowel: Normal. No free fluid, free air or adenopathy. No masses or acute inflammatory process. The appendix is not visualized. Pelvic Organs: Uterus and ovaries are surgically absent. The bladder and visualized pelvic organs are within normal limits. Vasculature: No aneurysms or other significant abnormality. Bones: No significant abnormality. Other: None. IMPRESSION: No specific abnormalities demonstrated to explain abdominal discomfort. RADIA
[2018-01-13] MEDS ORDERED: BENZOCAINE/MENTHOL LOZENGE MM PRN (16:51)
[2018-01-13] MEDS ORDERED: PHENOL THROAT SPRAY 177 ML MM PRN (16:51)
[2018-01-14] MEDS: guaiFENesin/DEXTROMETHORPHAN 10 ML UDC PO PRN ×2 (00:43→08:00)
[2018-01-14] MEDS: SODIUM CHLORIDE FLUSH 0.9% 10 ML SYRINGE IVP SCH ×2 (01:45→10:31)
[2018-01-14] MEDS: PIPERACILLIN/TAZOBACTAM 4.5 GM in SODIUM CHLORIDE 0.9% MINIBAG 100 ML IV SCH (01:45)
[2018-01-14] MEDS: ALBUTEROL NEB 2.5 MG/3 ML INH PRN (01:50)
[2018-01-14] MEDS: SODIUM CHLORIDE 0.9% 1,000 ML IV SCH (02:01)
[2018-01-14] MEDS: BENZONATATE 100 MG CAPSULE PO PRN (02:09)
[2018-01-14] MEDS: SODIUM CHLORIDE FLUSH 0.9% 10 ML SYRINGE IVP PRN ×3 (05:58→10:31)
[2018-01-14 06:14] LABS: BASOPHILS % (AUTO) 0.2 %; HGB - HEMOGLOBIN 10.8 g/dL (12.0-16.0); LYMPHOCYTES # (AUTO) 2.4 10^3/uL (1.5-3.5); LYMPHOCYTES % (AUTO) 9.8 %; MEAN CORPUSCULAR HEMOGLOBIN 30.5 pg (27.0-31.0); MEAN CORPUSCULAR HGB CONC 32.1 g/dL (32.0-36.0); MEAN CORPUSCULAR VOLUME 94.9 fL (81.0-99.0); MEAN PLATELET VOLUME 8.8 fL (7.9-10.8); MONOCYTES # (AUTO) 1.2 10^3/uL (0.0-1.0); MONOCYTES % (AUTO) 4.9 %; NEUTROPHILS # (AUTO) 20.7 10^3/uL (1.5-6.6); NEUTROPHILS % (AUTO) 85.1 %; PLT - PLATELET COUNT 231 10^3/uL (130-450); RED BLOOD COUNT 3.56 10^6/uL (4.20-5.40); RED CELL DISTRIBUTION WIDTH 14.2 % (12.0-15.0); WHITE BLOOD COUNT 24.3 x10^3/uL (4.8-10.8)
[2018-01-14 06:28] LABS: ALBUMIN 2.8 g/dL (3.2-5.5); BILIRUBIN,TOTAL 0.4 mg/dL (0.2-1.0); CALCIUM 8.2 mg/dL (8.5-10.3); CREATININE 0.9 mg/dL (0.4-1.0); TOTAL PROTEIN 5.6 g/dL (6.7-8.2)
[2018-01-14 06:55] LABS: DIFFERENTIAL COMMENT MANUAL=AUTO DIFF; PLATELET ESTIMATE, MANUAL NORMAL (130-450,000) (NORMAL); RBC MORPHOLOGY (MULTIPLE) NORMAL APPEARANCE (NORMAL)
[2018-01-14] MEDS: IPRATROPIUM/ALBUTEROL 3 ML NEB INH SCH (07:29)
[2018-01-14] MEDS ORDERED: predniSONE 20 MG TABLET PO SCH (08:00)
[2018-01-14 08:21] VITALS: BP 96/61
[2018-01-14] MEDS: ENOXAPARIN 40 MG/0.4 ML SYRINGE SUBQ SCH (08:38)
[2018-01-14] MEDS: POLYETHYLENE GLYCOL 3350 17 GM PACKET PO SCH (08:39)
[2018-01-14] MEDS ORDERED: VANCOMYCIN PER PHARMACY 1 GM in SODIUM CHLORIDE 0.9% 250 ML IV SCH (09:00)
[2018-01-14] MEDS: FLUCONAZOLE 200 MG/100 ML 50 ML IV SCH (09:19)
[2018-01-14] MEDS: guaiFENesin 600 MG TABLET PO SCH (09:24)
[2018-01-14] MEDS: SACCHAROMYCES BOULARDII 250 MG CAPSULE PO SCH (09:24)
--- NOTE | 2018-01-14 09:36 | XRAY Report ---
Reason: cough, SOB Procedure Date: 01/14/2018 Accession Number: [id number] / [id number] Procedure: XR - Chest 1 View X-Ray CPT Code: 19639 FULL RESULT: EXAM: CHEST RADIOGRAPHY EXAM DATE: 01/14/2018 09:26 AM. CLINICAL HISTORY: Cough, shortness of breath. COMPARISON: CHEST 2 VIEW 01/12/2018 8:40 AM. TECHNIQUE: 1 view. FINDINGS: Lungs/Pleura: No focal opacities evident. No pleural effusion. No pneumothorax. Mediastinum: Within exam limitations, the cardiomediastinal contour is normal. Other: Left-sided PICC line is in place with tip in the distal third SVC. IMPRESSION: Normal single view chest. RADIA
[2018-01-14] MEDS ORDERED: VANCOMYCIN INJ 2 GM in SODIUM CHLORIDE 0.9% 500 ML IV SCH (10:00)
--- NOTE | 2018-01-14 10:59 | DISCHARGE SUMMARY ---
Discharge Summary Discharge Date: 01/14/18 Discharging Provider: HARRELL Primary Care Provider: Corby Noguera Condition at Discharge: Poor Discharge Disposition: 07 Against Medical Advice Discharge Facility Name: home - DIAGNOSES Admission Diagnoses: (1) COPD exacerbation (2) Hypoxia (3) Oxygen dependent (4) Tobacco dependence (5) Pulmonary nodule Discharge Diagnoses with Status of Each Condition: (1) COPD exacerbation stable (2) Hypoxia resolved (3) Oxygen dependent continue home O2 (4) Tobacco dependence advise quit (5) Pulmonary nodule stable (6) cough with yellow sputum pt signed AMA (7) lymphocytosis pt signed AMA - HPI History of Present Illness: refer from Ms. Quesada's HPI on 01/12/18 for pt as the following: Pat Yuen is an old appearing 57-year old female with a past medical history of polycythemia, tobacco dependence, oxygen dependence, osteoarthritis, angina, hypertension, hyperlipidemia, CAD, pulmonary nodules, recent weight loss, and vitamin D deficiency. She came to the ED today after a 3 day history of headac he, fever, chills, productive cough, profound weakness, inability to ambulate, increased home oxygen needs, and ongoing shortness of breath. She states that her daughter, Ya was ill, and believes she had the flu. She states that she started to become ill on Friday (3 days ago) with sneezing, runny nose and general fatigue, and on Friday (2 days ago) she became much worse with similar symptoms, except now had coughing that was productive with white/yellow sputum. She states that she coughed so hard that she would wet her pants and/or vomit from gagging. She is dependent on oxygen that she normally wears at night, but she was wearing it continuously and turned it from her usual 2L up to 3L per nasal cannula. She also admits to round the clock albuterol use via nebulizer and "puffer". She states that the reason she came in today was her inability to ambulate more than a few steps. Once in the ED labs were unremarkable and her chest x-ray was clear. She complained of right chest burning pain with inspiration and was tacycardic, so a chest CT was done which showed stable un changed pulmonary nodules and negative for a PE. On exam, she denied mid- sternal chest pain, radiating pain, dizziness, diaphoresis, rashes, or hemoptysis. She will be admitted to inpatient for treatment of her COPD with IV steroids, IV antibiotics, and respiratory care. - HOSPITAL COURSE Hospital Course: pt was admitted for COPD exacerbation. Then pt was found to have cough with sputum, and treated with antibiotics. Pt's lung nodule is stable size. Ct of abdomen is unremarkable. pt continue to have increase lymphocytosis to 24.3 today. But pt really went to go home. Pt want to sign AMA. I explained to pt the risk of AMA, pt still desire to sign AMA and left hospital. - ALLERGIES Allergies/Adverse Reactions: Allergies Allergy/AdvReac Type Severity Reaction Status Date / Time morphine Allergy Nausea Verified 09/16/16 14:54 sumatriptan [From Imitrex] AdvReac Nausea Verified 10/31/17 18:29 - MEDICATIONS Home Medications: Ambulatory Orders Medication Instructions Recorded Confirmed Albuterol 1 neb NEB Q4HR PRN 08/02/15 01/13/18 Albuterol Sulfate [Ventolin Hfa] 2 puffs IH Q4HR PRN 08/02/15 01/13/18 Amitriptyline [Elavil] 50 mg PO DAILY 08/02/15 01/13/18 Ascorbic Acid [Vitamin C] 500 mg PO DAILY 01/13/18 01/13/18 Cholecalciferol [Vitamin D3] 5,000 unit PO DAILY 01/13/18 01/13/18 Nitroglycerin 0.4 mg SL DAILY PRN 01/13/18 01/13/18 Tiotropium [place] [Spiriva] 2 inh INH DAILY 01/13/18 01/13/18 - PHYSICAL EXAM AT DISCHARGE General Appearance: positive: No acute distress, Alert. negative: Lethargic Eyes Bilateral: positive: Normal inspection, PERRL, No lid inflammation, Conjunctivae nml ENT: positive: ENT inspection nml, Pharynx nml, No signs of dehydration. negative: Pharyngeal erythema, Oral lesions, Dry mucous membranes Neck: positive: Nml inspection, Thyroid nml, No JVD, Trachea midline. negative: Thyromegaly, Lymphadenopathy (R), Lymphadenopathy (L), Stiff neck, Swelling/bruising, Tracheal deviation Respiratory: positive: Chest non-tender, No respiratory distress. negative: Wheezes, Rales, Rhonchi Cardiovascular: positive: Regular rate & rhythm, No murmur, No gallop. negative: Irregularly irregular, Extrasystoles, Tachycardia, Bradycardia, JVD present, Systolic murmur, Diastolic murmur Peripheral Pulses: positive: 2+ Abdomen: positive: Non-tender, No organomegaly, Nml bowel sounds, No distention. negative: Tenderness, Guarding, Rebound Back: positive: Nml inspection. negative: CVA tenderness (R), CVA tenderness (L) Skin: positive: Color nml, No rash, Warm, Dry. negative: Cyanosis, Diaphoresis, Pallor Extremities: positive: Non-tender, Full ROM, Nml appearance. negative: Calf tenderness, Joint swelling, Chloe's sign/cords Neurologic/Psychiatric: positive: Oriented x3, Motor nml, Sensation nml, Mood/affect nml. negative: Weakness, Sensory loss, Facial droop, Slurred/abnml speech, Depressed mood/affect - LABS Result Diagrams: 01/14/18 06:05 01/14/18 06:05 - SEPSIS Current Stage of Sepsis: Ruled out - FOLLOW UP Follow Up: Pt signed AMA and left hospital. Pt state she will have colonoscope on next week Friday and have oncologist appointment on next Friday. - TIME SPENT Time Spent in Discharge (Minutes): 50
[2018-01-14] MEDS ORDERED: VANCOMYCIN INJ 0.75 GM in SODIUM CHLORIDE 0.9% 250 ML IV SCH (22:00)
== END 2018-01-14 10:50 | disposition left against medical advice (07) | DRG 192 ==
LOC: ED 08:22 → MS2 14:37
PROVIDERS: ADMIT Nurse Practitioner; ATTEND Nurse Practitioner Gerontology
DX: J43.9 Emphysema, unspecified (principal); R09.02 Hypoxemia; Z53.20 Procedure and treatment not carried out because of patient's decision for unspecified reasons; D72.820 Lymphocytosis (symptomatic); I10 Essential (primary) hypertension; I25.119 Atherosclerotic heart disease of native coronary artery with unspecified angina pectoris; E55.9 Vitamin D deficiency, unspecified; F17.218 Nicotine dependence, cigarettes, with other nicotine-induced disorders; F41.8 Other specified anxiety disorders; F32.9 Major depressive disorder, single episode, unspecified; F17.210 Nicotine dependence, cigarettes, uncomplicated; Z99.81 Dependence on supplemental oxygen; Z79.51 Long term (current) use of inhaled steroids; Z79.899 Other long term (current) drug therapy; Z87.01 Personal history of pneumonia (recurrent); Z95.828 Presence of other vascular implants and grafts
CPT/HCPCS: 36415; 71045; 71046; 71275; 74177; 80048; 80053; 83605; 83735; 84100; 84484; 85025; 87275; 87276; 94640; 94664; 99283; 99284

== ENCOUNTER 2018-02-02 10:03 | Day surgery (SDC) | payer MEDICAID ==
[2018-02-02] MEDS ORDERED: LACTATED RINGERS 1,000 ML IV ONE ×2 (10:08→12:35)
--- NOTE | 2018-02-02 11:00 | ANESTHESIA ---
Pre-Anesthesia VS, & Labs - Diagnosis weight loss - Procedure colonoscopy Vital Signs: Temp Pulse Resp BP Pulse Ox 36.2 C L 88 18 118/79 98 02/02/18 10:23 02/02/18 10:23 02/02/18 10:23 02/02/18 10:23 02/02/18 10:23 Height 5 ft 1 in Weight (kg) 67.4 kg Body Mass Index 29.0 - NPO >8 hours - Is Patient ?: No Home Medications and Allergies Albuterol 1 neb NEB Q4HR PRN 08/02/15 Albuterol Sulfate [Ventolin Hfa] 2 puffs IH Q4HR PRN 08/02/15 Amitriptyline [Elavil] 50 mg PO DAILY 08/02/15 Ascorbic Acid [Vitamin C] 500 mg PO DAILY 01/13/18 Cholecalciferol [Vitamin D3] 5,000 unit PO DAILY 01/13/18 Nitroglycerin 0.4 mg SL DAILY PRN 01/13/18 Tiotropium [place] [Spiriva] 2 inh INH DAILY 01/13/18 Allergies/Adverse Reactions: Allergies Allergy/AdvReac Type Severity Reaction Status Date / Time morphine Allergy Nausea Verified 01/30/18 12:19 sumatriptan [From Imitrex] AdvReac Nausea Verified 10/31/17 18:29 Anes History & Medical History - Anesthetic History Anesthesia Complications: reports: No previous complications - Medical History Cardiovascular: reports: High cholesterol, Angina, Arrhythmia, Other Pulmonary: reports: COPD, Emphysema, Pneumonia, Shortness of breath, Other Gastrointestinal: reports: GERD, Ulcers Urinary: reports: Incontinence Neuro: reports: Headaches Musculoskeletal: Endocrine/Autoimmune: reports: None Blood Disorders: reports: Polycythemia vera Skin: reports: None Smoking Status: Current every day smoker - Surgical History General: Cholecystectomy, Appendectomy Eyes Ears Nose Throat (EENT): Tonsil/Adenoidectomy Cardiothoracic: Cardiac catheterization Gynecologic: Dilation and currettage, Hysterectomy Orthopedic: Arthroscopic surgery Exam General: Alert Dental: WNL, Dentures full Upper Mouth Opening: Greater than 4 Fingerbreadths Neck Mobility: Normal Mallampati classification: II Thyromental Distance: greater than 6 cm Respiratory: Lungs clear Cardiovascular: Regular rate, Normal S1, Normal S2 Mental/Cognitive Status: Alert/Oriented X3 Plan Anesthesia Type: MAC Consent for Procedure(s) Verified and Reviewed: Yes Code Status: Attempt Resuscitation ASA classification: 3-Severe systemic disease Is this case an emergency?: No
[2018-02-02] MEDS ORDERED: PROPOFOL 200 MG/20 ML VIAL IVP ONE (11:35)
[2018-02-02] MEDS ORDERED: LIDOCAINE-MPF 2% 5 ML VIAL IM ONE (11:35)
[2018-02-02] MEDS ORDERED: fentaNYL 100 MCG/2 ML VIAL IVP ONE (11:35)
[2018-02-02] MEDS ORDERED: MIDAZOLAM 2 MG/2 ML VIAL IVP ONE (11:35)
[2018-02-02] MEDS ORDERED: ePHEDrine 50 MG/ML VIAL IVP ONE (11:35)
[2018-02-02] MEDS ORDERED: SODIUM CHLORIDE FLUSH 0.9% 10 ML SYRINGE ONE (13:28)
[2018-02-02 13:40] VITALS: BP 98/85
== END 2018-02-02 10:04 | disposition home or self-care (01) ==
LOC: SDS 10:03
PROVIDERS: ATTEND Surgery
PROC: 0DJD8ZZ Inspection of Lower Intestinal Tract, Via Natural or Artificial Opening Endoscopic (ICD-10-PCS; principal; 2018-02-02 11:15)
DX: R63.4 Abnormal weight loss (principal); K57.30 Diverticulosis of large intestine without perforation or abscess without bleeding; K64.8 Other hemorrhoids; J43.9 Emphysema, unspecified; K21.9 Gastro-esophageal reflux disease without esophagitis; F17.210 Nicotine dependence, cigarettes, uncomplicated; E78.5 Hyperlipidemia, unspecified; R06.83 Snoring
CPT/HCPCS: 45378; J7120

== ENCOUNTER 2018-02-25 08:39 | Outpatient (CLI) | payer MEDICAID ==
[2018-02-25 12:52] LABS: BILIRUBIN,URINE NEGATIVE (NEGATIVE); GLUCOSE, URINE (UA) NEGATIVE (NEGATIVE); KETONES,URINE (UA) NEGATIVE (NEGATIVE); LEUKOCYTE ESTERASE, URINE LARGE (NEGATIVE); NITRITE,URINE NEGATIVE (NEGATIVE); OCCULT BLOOD,URINE MODERATE (NEGATIVE); PROTEIN,URINE NEGATIVE (NEGATIVE); UROBILINOGEN,URINE 0.2 (NORMAL) E.U./dL (NORMAL)
[2018-02-25 13:16] LABS: CLARITY,URINE HAZY (CLEAR)
[2018-02-25 13:19] LABS: BACTERIA,URINE Many /HPF (None Seen); SQUAMOUS EPITHELIAL CELL,UR MANY Squamous (<= Few); WBC CLUMPS,URINE PRESENT
== END 2018-02-25 23:59 | disposition home or self-care (01) ==
LOC: LAB.N 08:39
PROVIDERS: ATTEND Family Medicine
DX: R35.0 Frequency of micturition (principal)
CPT/HCPCS: 81001; 81003; 87086

== ENCOUNTER 2018-03-11 08:00 | Outpatient (CLI) | payer MEDICAID ==
[2018-03-13 09:11] LABS: CALCIUM 8.9 mg/dL (8.5-10.3); CREATININE 0.7 mg/dL (0.4-1.0)
[2018-03-13 09:12] LABS: ALBUMIN 3.7 g/dL (3.2-5.5); BILIRUBIN,TOTAL 0.2 mg/dL (0.2-1.0); TOTAL PROTEIN 7.4 g/dL (6.7-8.2)
== END 2018-03-11 23:59 | disposition home or self-care (01) ==
LOC: LAB 08:00
PROVIDERS: ATTEND Nurse Practitioner
DX: R35.0 Frequency of micturition (principal); D75.1 Secondary polycythemia
CPT/HCPCS: 80053

== ENCOUNTER 2018-03-13 08:00 | Outpatient (CLI) | payer MEDICAID | END 2018-03-13 23:59 | disposition home or self-care (01) | LOC: LAB.R 08:00 | PROVIDERS: ATTEND Nurse Practitioner | DX: R35.0 Frequency of micturition (principal) | CPT/HCPCS: 87086 ==

== ENCOUNTER 2018-04-01 17:50 | Outpatient (CLI) | payer MEDICAID ==
--- NOTE | 2018-04-02 11:35 | Ultrasound Report ---
Reason: URINARY FREQUENCY Procedure Date: 04/01/2018 Accession Number: [id number] / [id number] Procedure: US - Bladder CPT Code: FULL RESULT: EXAM: PELVIS ULTRASOUND, LIMITED EXAM DATE: 04/01/2018 06:08 PM. CLINICAL HISTORY: Urinary frequency. COMPARISON: None. TECHNIQUE: Real-time scanning was performed with static images obtained. FINDINGS: Limited evaluation of the bladder was performed. The prevoid bladder demonstrated a volume of 419 mL and the postvoid bladder demonstrate a volume of 6.1 mL. Bilateral ureteral jets are appreciated. Visualized bladder is morphologically unremarkable. IMPRESSION: Normal ultrasound evaluation of the bladder. RADIA
== END 2018-04-01 17:51 | disposition home or self-care (01) ==
LOC: DI 17:50
PROVIDERS: ATTEND Nurse Practitioner
DX: R35.0 Frequency of micturition (principal)
CPT/HCPCS: 76857

== ENCOUNTER 2018-08-06 08:00 | Outpatient (CLI) | payer MEDICAID ==
[2018-08-06 12:48] LABS: BASOPHILS # (AUTO) 0.1 10^3/uL (0.0-0.1); EOSINOPHILS # (AUTO) 0.1 10^3/uL (0.0-0.7); EOSINOPHILS % (AUTO) 1.4 %; HGB - HEMOGLOBIN 15.8 g/dL (12.0-16.0); LYMPHOCYTES # (AUTO) 3.2 10^3/uL (1.5-3.5); LYMPHOCYTES % (AUTO) 31.8 %; MEAN CORPUSCULAR HEMOGLOBIN 29.9 pg (27.0-31.0); MEAN CORPUSCULAR HGB CONC 32.9 g/dL (32.0-36.0); MEAN CORPUSCULAR VOLUME 90.8 fL (81.0-99.0); MEAN PLATELET VOLUME 9.7 fL (7.9-10.8); MONOCYTES # (AUTO) 0.7 10^3/uL (0.0-1.0); MONOCYTES % (AUTO) 7.2 %; NEUTROPHILS # (AUTO) 5.9 10^3/uL (1.5-6.6); NEUTROPHILS % (AUTO) 58.6 %; PLT - PLATELET COUNT 276 10^3/uL (130-450); RED BLOOD COUNT 5.28 10^6/uL (4.20-5.40); RED CELL DISTRIBUTION WIDTH 16.1 % (12.0-15.0)
[2018-08-06 13:16] LABS: CALCIUM 9.3 mg/dL (8.5-10.3); CREATININE 0.8 mg/dL (0.4-1.0)
[2018-08-06 13:43] LABS: HB2 TOTAL 17.4 g/dL; HEMOGLOBIN A1C 0.67 g/dL; HEMOGLOBIN A1C % 5.7 % (4.6-6.2)
== END 2018-08-06 23:59 | disposition home or self-care (01) ==
LOC: LAB.N 08:00
PROVIDERS: ATTEND Physician Assistant Medical
DX: R63.4 Abnormal weight loss (principal); E55.9 Vitamin D deficiency, unspecified; E53.8 Deficiency of other specified B group vitamins
CPT/HCPCS: 36415; 80048; 82306; 82607; 83036; 85025

== ENCOUNTER 2018-08-20 09:25 | Outpatient (CLI) | payer MEDICAID ==
--- NOTE | 2018-08-20 10:45 | XRAY Report ---
Reason: UNSPECIFIED BACK PAIN Procedure Date: 08/20/2018 Accession Number: [id number] / [id number] Procedure: XRN - Thoracic Spine 3 View CPT Code: FULL RESULT: EXAM: THORACIC SPINE RADIOGRAPHY EXAM DATE: 08/20/2018 09:56 AM. CLINICAL HISTORY: Unspecified back pain. COMPARISON: None. TECHNIQUE: 2 views. FINDINGS: Alignment: There is a mild dextroconvex thoracic curvature centered about T10, approximately 16 degrees followed by partially visualized levoconvex lumbar scoliosis. There is kyphosis. There is no listhesis. Bones: The bones are qualitatively osteopenic; this limits evaluation for underlying fractures or masses. No dominant single level compression fracture is detected. Disks: Mild multilevel loss of disk space height with minimal endplate spurring. Soft Tissues: Normal. The visualized lungs and cardiomediastinal silhouette are normal. IMPRESSION: Degenerative changes and scoliosis as described. RADIA
== END 2018-08-20 09:26 | disposition home or self-care (01) ==
LOC: DI.N 09:25
PROVIDERS: ATTEND Physician Assistant Medical
DX: M47.814 Spondylosis without myelopathy or radiculopathy, thoracic region (principal); M40.294 Other kyphosis, thoracic region; M41.86 Other forms of scoliosis, lumbar region; M85.88 Other specified disorders of bone density and structure, other site
CPT/HCPCS: 72072

== ENCOUNTER 2018-10-13 09:37 | Outpatient (CLI) | payer MEDICAID ==
--- NOTE | 2018-10-13 16:27 | Mammography Report ---
Reason: ROUTINE MAMMO Procedure Date: 10/13/2018 Accession Number: [id number] / [id number] Procedure: VIC - Screening Mammo w/Jesse CPT Code: FULL RESULT: EXAM: Screening Mammo w/Jesse DATE: 10/13/2018 10:04 AM CLINICAL HISTORY: Screening encounter. Family history of breast cancer in a sister at the age of 52 and a maternal aunt at the age of 65. TECHNIQUE: (B) - Bilateral CC and MLO views were obtained. Right laterally exaggerated CC views obtained. COMPARISON: 02/18/2017 through 04/01/2011. PARENCHYMAL PATTERN: (A) - The breast(s) demonstrate(s) scattered fibroglandular densities. FINDINGS: There are no suspicious masses, calcifications, or areas of distortion. IMPRESSION: Negative examination. BI-RADS category 1. RECOMMENDATION: (ANNUAL) - Recommend routine annual screening mammography. BI-RADS CATEGORY: (1) - Negative. STANDARD QUALIFYING STATEMENTS: 1. This examination was not reviewed with the aid of Computer-Aided Detection (CAD). 2. A negative or benign imaging report should not preclude biopsy if clinically suspicious findings are present. 3. Dense breasts may obscure an underlying neoplasm. 4. This examination was reviewed with the aid of 3D breast imaging (tomosynthesis).
== END 2018-10-13 09:38 | disposition home or self-care (01) ==
LOC: DI 09:37
PROVIDERS: ATTEND Physician Assistant Medical
DX: Z12.31 Encounter for screening mammogram for malignant neoplasm of breast (principal); Z80.3 Family history of malignant neoplasm of breast
CPT/HCPCS: 77063; 77067

== ENCOUNTER 2018-10-13 09:38 | Outpatient (CLI) | payer MEDICAID ==
--- NOTE | 2018-10-14 08:33 | DEXA Report ---
Reason: OSTEOPENIA, OSTEOPOROSIS Procedure Date: 10/13/2018 Accession Number: [id number] / [id number] Procedure: DEX - Dexa Spine and/or Hip CPT Code: FULL RESULT: EXAM: Dexa Spine and/or Hip DATE: 10/13/2018 10:44 AM CLINICAL HISTORY: OSTEOPENIA, OSTEOPOROSIS TECHNIQUE: Dual energy x-ray absorptiometry (DXA) was performed on a [employer] System. Regions measured are the AP Spine, femoral neck, and if needed forearm. COMPARISON: 02/18/2017. In accordance with the International Society for Clinical Densitometry (ISCD) guidelines, data from previous exams may be reanalyzed using current recommendations and techniques. This is done to allow a more accurate basis for comparison with the current study. FINDINGS: The data for the lumbar spine is as follows: BMD (g/cm/cm) T-SCORE Z-SCORE REGION L1 0.894 -2.0 -0.9 L2 0.905 -2.5 -1.3 L3 0.934 -2.2 -1.1 L4 0.944 -2.1 -1.0 TOTAL 0.922 -2.2 -1.0 NOTE: All evaluable vertebrae are used for classification The data for the hip is as follows: BMD (g/cm/cm) T-SCORE Z-SCORE REGION Neck 0.839 -1.4 -0.2 TOTAL 0.825 -1.4 -0.6 NOTE: The femoral neck or total proximal femur, whichever is lowest, is used for classification. DXA RESULTS SUMMARY: Spine SCAN DATE AGE BMD CHANGE VS CHANGE VS PREVIOUS PREVIOUS % 10[birth year]13/2018 58.6 0.922 0.020 2.2 02/18/2017 57.0 0.902 * Denotes significant change at the 95% confidence level. Denotes dissimilar scan types or analysis methods. DXA RESULTS SUMMARY: Hip SCAN DATE AGE BMD CHANGE VS CHANGE VS PREVIOUS PREVIOUS % 10[birth year]13/2018 57.6 0.825 -0.029 -3.4 02/18/2017 57.0 0.854 * Denotes significant change at the 95% confidence level. Denotes dissimilar scan types or analysis methods. IMPRESSION: THE WHO CLASSIFICATION BASED ON THE INTERNATIONAL REFERENCE STANDARD IS OSTEOPENIA. THE FRACTURE RISK IS INCREASED. RECOMMENDATION: Patients with diagnosis of osteoporosis or osteopenia should have regular bone mineral density assessment. For those eligible for Medicare, routine testing is allowed once every 2 years. Testing frequency can be increased for patients who have rapidly progressing disease or for those who are receiving medical therapy to restore bone mass. COMMENT: World Health Organization (WHO) definitions for osteoporosis and osteopenia: NORMAL BMD: T-score at -1.0 or higher, fracture risk is low OSTEOPENIA BMD: T-score between -1.0 and -2.5, fracture risk is increased. OSTEOPOROSIS BMD: T-score at -2.5 or lower, fracture risk is high. National Osteoporosis Foundation recommends: 1. Obtain adequate dietary calcium (at least 1200 mg per day) and vitamin D (400-800 international units per day). 2. Participate, as appropriate, in regular weightbearing and muscle-strengthening exercise. 3. Avoid tobacco use and reduce alcohol and caffeine intake. 4. For more detailed information see the website at www.NOF.org.
== END 2018-10-13 09:39 | disposition home or self-care (01) ==
LOC: DI 09:38
PROVIDERS: ATTEND Physician Assistant Medical
DX: M85.89 Other specified disorders of bone density and structure, multiple sites (principal)
CPT/HCPCS: 77080

== ENCOUNTER 2018-10-22 08:00 | Outpatient (CLI) | payer MEDICAID ==
[2018-10-22 19:00] LABS: CALCIUM 9.5 mg/dL (8.5-10.3); CREATININE 0.8 mg/dL (0.4-1.0)
== END 2018-10-22 23:59 | disposition home or self-care (01) ==
LOC: LAB.N 08:00
PROVIDERS: ATTEND Physician Assistant Medical
DX: R55 Syncope and collapse (principal); R20.2 Paresthesia of skin; R51 Headache; E55.9 Vitamin D deficiency, unspecified
CPT/HCPCS: 36415; 80048; 82306

== ENCOUNTER 2019-04-07 11:24 | Day surgery (SDC) | payer MEDICAID ==
--- NOTE | 2019-04-07 13:13 | ANESTHESIA PROCEDURE NOTE ---
Anesth Central Line Template - Central Line Central Line Preparation: Consent Obtained, Time out completed, Ultrasound used, Sterile prep and drape Central line catheter tip site resides: cavoatrial junction Central line aftercare: Secured, Placement confirmed, No complications, Pt tolerated well Other Info/Details: After informed consent obtained and time out, patient's right upper arm was prepped with betadine. The ultrasound was used to image the right bascilic vein. A total of 5ml of 1% lidocaine was used for skin localization. A 20 edmar needle was used to access the vein and the wire was advanced with ease. A 4.5 peel-away sheath was inserted over the wire and the wire was removed. The catheter was trimmed to 39 cm and advanced with ease. The wire tracking indicated the tip headed toward the heart. I was unable to get an adequate p-wave tracing to confirm correct placement. The sheath and tracking wire were removed and the catheter was hubbed at the skin. The catheter aspirated blood and flushed with ease. Line was secured and covered with an opsite. Chest xray showed the tip to be in the cavoatrial junction. Patient was discharged to home in good condition.
--- NOTE | 2019-04-07 13:31 | XRAY Report ---
Reason: Line Placement Procedure Date: 04/07/2019 Accession Number: [id number] / [id number] Procedure: XR - Chest for Line Placement CPT Code: Final Report FULL RESULT: EXAM: CHEST RADIOGRAPHY EXAM DATE: 04/07/2019 12:59 PM. CLINICAL HISTORY: Line Placement. COMPARISON: None. TECHNIQUE: 1 view. FINDINGS: Lungs/Pleura: No focal opacities evident. No pleural effusion. No pneumothorax. Mediastinum: Within exam limitations, the cardiomediastinal contour is normal. Other: Right upper extremity PICC tip terminates in the distal SVC. IMPRESSION: Right upper extremity PICC tip terminates in the distal SVC. RADIA
== END 2019-04-07 11:25 | disposition home or self-care (01) ==
LOC: SDS 11:24
PROVIDERS: ATTEND Nurse Anesthetist, Certified Registered
PROC: 02HV33Z Insertion of Infusion Device into Superior Vena Cava, Percutaneous Approach (ICD-10-PCS; principal; 2019-04-07 12:00)
DX: D75.1 Secondary polycythemia (principal)
CPT/HCPCS: 36569; C1751; 71045

== ENCOUNTER 2019-04-24 13:03 | Outpatient (CLI) | payer MEDICAID ==
--- NOTE | 2019-04-25 03:34 | Ultrasound Report ---
Reason: POLYCYTHEMIA Procedure Date: 04/24/2019 Accession Number: [id number] / [id number] Procedure: US - Head or Neck Soft Tissue CPT Code: Final Report FULL RESULT: EXAM: HEAD AND NECK SOFT TISSUE ULTRASOUND EXAM DATE: 04/24/2019 01:09 PM. CLINICAL HISTORY: POLYCYTHEMIA. Palpable lump in the left submandibular region. COMPARISON: None. TECHNIQUE: Real time sonographic imaging of the soft tissues of the neck was performed by the head of sales promotion. Multiple wire rope sales representative static images were saved for review. FINDINGS: In the area of the palpable abnormality, a normal lymph node measuring 1.5 x 0.4 x 0.6 cm is seen with normal internal architecture. A comparison view of the contralateral neck in the same region demonstrates a similar sized and normal lymph node measuring 1.7 x 0.8 x 0.8 cm. No mass or fluid collection is seen. IMPRESSION: Normal appearing physiologic lymph nodes in the bilateral submandibular regions. RADIA
--- NOTE | 2019-04-28 17:31 | ONCOLOGY / HEMATOLOGY ---
DATE OF SERVICE: 04/28/2019 Physician: Ayo Yuen MD DIAGNOSES 1. Reactive erythrocytosis. a. JAK2, MPL, CALR, EPO negative. b. Intermittent phlebotomy in the past, most recently more than 1 year ago. 2. History of chronic leukocytosis. 3. Severe chronic obstructive pulmonary disease, on home O2 with inhalers. HISTORY OF PRESENT ILLNESS: This is a 59-year-old woman who presents for followup of the above medic al issues. Since last seen, the patient underwent therapeutic phlebotomy in 03/31/2019 with a half of the unit r emoved as per instructions. On follow up, the patient reports that her shortness of breath appears to have gotten mildly improved . She notes that anytime she is less than 45. She tends to have worsening symptoms of fatigue and s hortness of breath. The patient is status post placement of PICC line for phlebotomy, but she is considering a port place ment after her acute need for therapeutic phlebotomies tapers off. The patient denies any new palpitations, chest pain or shortness of breath. Is still having some dif ficulty walking her [place] Kh[place] who is 80 pounds. She denies any fevers or chills. No lymph node swelling. The patient underwent a left neck ultrasound, which was negative for any concerning signs of patholog ical lymphadenopathy. She has no other new constitutional symptoms to report today. REVIEW OF SYSTEMS: A complete review of systems was performed today and negative in detail except pe r HPI. PAST, FAMILY AND SOCIAL HISTORY: Reviewed as per her most recent note from 03/31/2019 and unchanged today. PHYSICAL EXAMINATION VITAL SIGNS: Reviewed per chart. GENERAL: Slender fatigued looking woman, alert and oriented x3. HEENT: PERRLA, EOMI, MMM. LYMPH NODES: No cervical or supraclavicular lymphadenopathy. CARDIOVASCULAR: Regular rate and rhythm, S1, S2. ABDOMEN: Soft, nontender, nondistended. EXTREMITIES: No extremity edema or tenderness to palpation. LABORATORY DATA: CBC performed 04/28/2019 notable for white count of 11, hemoglobin 15.3, hematocrit of 45.8, platelet count of 300, iron studies with iron 57, TIBC 423, transferrin saturation of 15% w ith a transferrin saturation 302, ferritin of 17.1. IMAGING: Imaging reviewed: Left neck ultrasound 04/24/2019. Impression: Normal appearing physiolog ic lymph nodes in the bilateral submandibular regions. No mass or fluid collection seen, normal inte rnal architecture visualized. ASSESSMENT: This is a 59-year-old woman with a history of mutation negative reactive leukocytosis an d erythrocytosis, likely in the setting of underlying chronic obstructive pulmonary disease and chron ic hypoxia, with slight improvement of symptoms status post therapeutic phlebotomy. PLAN 1. Secondary erythrocytosis in the setting of chronic hypoxia. Given symptomatic benefit from thera peutic phlebotomy will continue phlebotomy as below. a. Continue with therapeutic phlebotomy scheduled for next week. b. Discussed with the patient goal for hemoglobin less than 10, with a goal hematocrit of less t jeff 45. c. Therapeutic phlebotomy with half a pint to be removed every other week. d. Continue to monitor iron studies every 3 weeks to assess for need for a lesion. e. We will reassess will plan to reassess patient's symptoms in approximately 3 weeks' time. 2. Reactive leukocytosis, left previous painful lymph nodes, likely reactive in the setting of under lying chronic inflammation. a. Left neck ultrasound negative, would not biopsy at this time. b. We will defer further additional testing at this time given resolution of symptoms and benign findings on ultrasound of the neck. The patient to follow up in 3 weeks' time for further symptoms reassessment. cc: Ayo Yuen MD TD: 04/28/2019 12:05
== END 2019-04-24 13:04 | disposition home or self-care (01) ==
LOC: DI 13:03
PROVIDERS: ATTEND Internal Medicine
DX: D75.1 Secondary polycythemia (principal)
CPT/HCPCS: 76536

== ENCOUNTER 2019-07-07 19:22 | Outpatient (CLI) | payer MEDICAID | END 2019-07-07 19:23 | disposition home or self-care (01) | LOC: COV 19:22 | PROVIDERS: ATTEND Family Medicine | DX: R06.02 Shortness of breath (principal); R06.2 Wheezing | CPT/HCPCS: 81599 ==

== ENCOUNTER 2019-07-09 06:40 | Day surgery (SDC) | payer MEDICAID ==
[2019-07-09] MEDS ORDERED: LACTATED RINGERS 1,000 ML IV ONE (06:50)
[2019-07-09] MEDS ORDERED: LIDOCAINE-MPF 1% 30 ML VIAL ONE (07:13)
[2019-07-09] MEDS ORDERED: ceFAZolin 1 GM VIAL ONE (07:13)
[2019-07-09] MEDS ORDERED: SODIUM CHLORIDE 0.9% 10 ML ONE (07:14)
[2019-07-09] MEDS ORDERED: BUPIVACAINE 0.25% PF 30 ML VIAL ONE (07:25)
[2019-07-09] MEDS ORDERED: LIDOCAINE-MPF 2% 5 ML VIAL IM ONE (07:40)
[2019-07-09] MEDS ORDERED: GLYCOPYRROLATE 1 MG/5 ML VIAL IVP ONE (07:40)
[2019-07-09] MEDS ORDERED: PROPOFOL 200 MG/20 ML VIAL IVP ONE (07:40)
[2019-07-09] MEDS ORDERED: KETAMINE 500 MG/10 ML VIAL IVP ONE (07:40)
[2019-07-09] MEDS ORDERED: MIDAZOLAM 2 MG/2 ML VIAL IVP ONE (07:40)
[2019-07-09] MEDS ORDERED: ceFAZolin 1 GM VIAL IR ONE (07:54)
[2019-07-09] MEDS ORDERED: LIDOCAINE 1% 50 ML MDV SUBQ ONE ×2 (07:55)
[2019-07-09] MEDS ORDERED: BUPIVACAINE 0.25% PF 30 ML VIAL SUBQ ONE ×2 (08:03)
--- NOTE | 2019-07-09 08:51 | ANESTHESIA ---
Pre-Anesthesia VS, & Labs - Diagnosis erythrocytosis - Procedure mediport placement Vital Signs: Temp Pulse Resp BP Pulse Ox 36.0 C L 89 16 108/79 96 07/09/19 08:37 07/09/19 08:40 07/09/19 08:40 07/09/19 08:40 07/09/19 08:40 Height 5 ft 2 in Weight (kg) 70.45 kg Body Mass Index 29.7 - NPO >8 hours - Is Patient ?: No Home Medications and Allergies Home Medications: Ambulatory Orders Loratadine [Allergy Relief] 10 mg PO PRN 07/08/19 Mirabegron [Myrbetriq] 25 mg PO 07/08/19 Albuterol 1 neb NEB Q4HR PRN 08/02/15 Albuterol Sulfate [Ventolin Hfa] 2 puffs IH Q4HR PRN 08/02/15 Amitriptyline [Elavil] 50 mg PO DAILY 08/02/15 Ascorbic Acid [Vitamin C] 500 mg PO DAILY 01/13/18 Cholecalciferol [Vitamin D3] 5,000 unit PO Q7D 01/13/18 Nitroglycerin 0.4 mg SL DAILY PRN 01/13/18 Tiotropium [place] [Spiriva] 2 inh INH DAILY 01/13/18 Loratadine [Allergy Relief] 10 mg PO PRN 07/08/19 Mirabegron [Myrbetriq] 25 mg PO 07/08/19 Allergies/Adverse Reactions: Allergies Allergy/AdvReac Type Severity Reaction Status Date / Time chlorhexidine Allergy Hives Verified 06/23/19 15:36 morphine Allergy Nausea Verified 06/23/19 15:36 sumatriptan [From Imitrex] AdvReac Nausea Verified 06/23/19 15:36 Anes History & Medical History - Anesthetic History Anesthesia Complications: reports: No previous complications - Medical History Cardiovascular: reports: Hypertension, High cholesterol, Coronary artery disease, Angina, Murmur Pulmonary: reports: COPD, Emphysema, Pneumonia, Shortness of breath Gastrointestinal: reports: GERD, Colon polyps Urinary: reports: Incontinence, Nocturia, Frequency Neuro: reports: Headaches Musculoskeletal: reports: Osteoarthritis, Osteopenia Endocrine/Autoimmune: reports: None Blood Disorders: reports: Polycythemia vera Skin: reports: None Smoking Status: Current every day smoker - Surgical History General: Cholecystectomy, Appendectomy Eyes Ears Nose Throat (EENT): Tonsil/Adenoidectomy Cardiothoracic: Cardiac catheterization Gynecologic: Dilation and currettage, Hysterectomy Orthopedic: Arthroscopic surgery Exam General: Alert, Oriented x3 Dental: WNL Neck Mobility: Normal Mallampati classification: II Thyromental Distance: greater than 6 cm Respiratory: Decreased breath sounds Cardiovascular: Regular rate, Normal S1, Normal S2 Plan Anesthesia Type: MAC, Total IV Consent for Procedure(s) Verified and Reviewed: Yes Code Status: Attempt Resuscitation ASA classification: 3-Severe systemic disease Is this case an emergency?: No
[2019-07-09 09:43] VITALS: BP 105/72
--- NOTE | 2019-07-09 12:45 | OPERATIVE REPORT ---
DATE OF SERVICE: 07/09/2019 Physician: Jarrod Parkinson MD PREOPERATIVE DIAGNOSES 1. Poor peripheral IV access. 2. Need for central access for ongoing treatment. POSTOPERATIVE DIAGNOSES 1. Poor peripheral intravenous access. 2. Need for central access for ongoing treatment. PROCEDURE PERFORMED 1. Placement of 8-Burm[place] right subclavian PowerPort. 2. Fluoroscopic guidance for PowerPort placement. SURGEON: Asad Parkinson MD FUNERAL PRE ARRANGEMENT COUNSELOR: None. TYPE OF ANESTHESIA: Monitored anesthesia care, IV sedation, local anesthesia. COMPLICATIONS: None. SPECIMENS: None. ESTIMATED BLOOD LOSS: Less than 5 mL FINDINGS: Good PowerPort placement under fluoroscopic guidance. Tip placed at the junction of the atrium and the superior vena cava. The port flushed and aspirated very easily at completion. INDICATIONS FOR PROCEDURE: Patient is a 59-year-old with polycythemia or erythrocytosis requiring frequent phlebotomies. She has had PICC lines in the past. She has lost peripheral IV access for the most part. Her hand i tube bender is recommending a port. Risks discussed. Alternatives discussed. All questions answered and consent obtained. DESCRIPTION OF PROCEDURE: Patient was properly identified, brought to the operating room and placed in supine position. Monitored anesthesia care was given. A towel roll was placed between her scapula. The arms were tucked. She was prepped and draped in a sterile fashion and given preoperative antibiotics. Local anesthetic was given. The right subclavian vein was easily accessed first pass of the needle. Guidewire was placed. There was no ectopy. Proper guidewire position was confirmed with fluoroscopy. A 3.5 cm incision was made in the right upper chest. A pocket was created for the Port-A-Cath catheter. A Port-A-Cath tubing was pulled through a subcutaneous tunnel towards the access point of the subclavian vein. A dilator pull-away sheath was then placed over the guidewire. Port catheter tubing was then easily placed. Port catheter tubing was pulled back under fluoroscopic guidance to the above position. It aspirated very easily. Port catheter tubing was then cut to size and Port-A-Cath catheter assembled. The port was then secured to the subcutaneous tissue with 2 interrupted 5-0 Prolene sutures. Hemostasis was ensured. The port again aspirated and flushed with heparin. Deep dermis was closed with interrupted 3-0 Vicryl suture. Skin was closed with buried interrupted or running 4-0 Monocryl subcuticular suture. Given her sensitivity to adhesives and dressing, skin glue was used. She tolerated the procedure very well, was brought to recovery in good condition. TD: 07/09/2019 11:41 MTDSada
--- NOTE | 2019-07-12 08:28 | XRAY Report ---
Reason: portacath placement Procedure Date: 07/09/2019 Accession Number: [id number] / [id number] Procedure: [place] - OR Port-A-Cath CPT Code: Final Report FULL RESULT: EXAM: EXAM DATE: 07/09/2019 08:51 AM CLINICAL HISTORY: Portacath placement. COMPARISON: None. TECHNIQUE: No Views FINDINGS: Fluoroscopy time less than 1 minute. No images saved IMPRESSION: Fluoroscopy for Port-A-Cath placement [facility]
== END 2019-07-09 06:41 | disposition home or self-care (01) ==
LOC: SDS 06:40
PROVIDERS: ATTEND Surgery
DX: D75.1 Secondary polycythemia (principal); J44.9 Chronic obstructive pulmonary disease, unspecified; F17.210 Nicotine dependence, cigarettes, uncomplicated; I10 Essential (primary) hypertension; I25.10 Atherosclerotic heart disease of native coronary artery without angina pectoris; R01.1 Cardiac murmur, unspecified
CPT/HCPCS: 36561; C1788; J7120

== ENCOUNTER 2020-04-11 08:00 | Outpatient (CLI) | payer MEDICAID | END 2020-04-11 23:59 | disposition home or self-care (01) | LOC: LAB.WCP 08:00 | PROVIDERS: ATTEND Family Medicine | DX: Z01.84 Encounter for antibody response examination (principal); J96.10 Chronic respiratory failure, unspecified whether with hypoxia or hypercapnia | CPT/HCPCS: 36415; 86769 ==